=== PATIENT | female | born 1970 | race African-American/Black ===

== ENCOUNTER 2020-01-19 11:39 | Outpatient (CLI) | payer OTHER, SELFPAY ==
[2020-01-19 12:40] LABS: Basophils Percent Auto 0.8 % (0.2-1.2); Eosinophils Absolute Auto 0.1 K/mm3 (0-0.3); Eosinophils Percent Auto 1.3 % (0-4.4); Hematocrit 36.6 % (37.0-47.0); Hemoglobin 11.9 g/dL (12.0-15.0); Immature Granulocyte Absolute 0.01 K/mm3 (0.00-0.031); Immature Granulocyte Percent A 0.3 % (0-0.5); Lymphocytes Absolute Auto 1.66 K/mm3 (0.9-3.2); Lymphocytes Percent Auto 41.9 % (18.3-44.2); Mean Corpuscular HGB Conc 32.5 g/dl (32-36); Mean Corpuscular Hemoglobin 28.2 pg (26-34); Mean Corpuscular Volume 86.7 fl (80-100); Mean Platelet Volume 9.8 fl (7.4-10.4); Monocytes Absolute Auto 0.4 K/mm3 (0.1-0.6); Monocytes Percent Auto 9.6 % (2.6-8.5); Neutrophils Absolute Auto 1.8 K/mm3 (1.3-6.7); Neutrophils Percent Auto 46.1 % (45.5-73.1); Platelet Count Result 267 k/mm3 (150-375); Red Blood Count 4.22 M/mm3 (4.2-5.4)
[2020-01-19 12:50] LABS: Alanine Aminotransferase 14 U/L (4-35); Albumin Level 4.1 g/dL (3.5-5.1); Alkaline Phosphatase 73 U/L (38-126); Anion Gap 5 mmol/L (8-16); Aspartate Amino Transferase 24 U/L (14-36); Bilirubin,Total 0.6 mg/dL (0.2-1.3); Blood Urea Nitrogen 16 mg/dL (7-17); Calcium 9.3 mg/dL (8.4-10.2); Carbon Dioxide 31 mmol/L (22-30); Chloride 106 mmol/L (98-107); Cholesterol 224 mg/dL (0-200); Estimated Glomerular Filt Rate > 60; Glucose 90 mg/dL (65-105); HDL Direct 86 mg/dL; Potassium 4.3 mmol/L (3.4-5.0); Sodium 142 mmol/L (137-145); Triglycerides 82 mg/dL (<150)
[2020-01-19 12:51] LABS: Hemoglobin A1C 5.3 % (<5.7)
[2020-01-19 13:01] LABS: LDL Cholesterol Direct 85 mg/dL
[2020-01-19 13:24] LABS: Creatinine Urine 114.5 mg/dL
[2020-01-19 13:40] LABS: Vitamin D 25 Hydroxy 35.2 ng/mL
[2020-01-19 14:07] LABS: MALB Creatinine Ratio < 5.2 mg/g (0-30); Microalbumin Urine Random < 6.0 mg/L (0-16.7)
== END 2020-01-19 11:40 | disposition home or self-care (01) ==
LOC: ANHLAB 11:41
PROVIDERS: PCP Internal Medicine; Visit Provider Internal Medicine
DX: R73.01 Impaired fasting glucose (principal); E55.9 Vitamin D deficiency, unspecified; G70.00 Myasthenia gravis without (acute) exacerbation; Z79.899 Other long term (current) drug therapy
CPT/HCPCS: 36415; 80053; 80061; 82043; 82306; 83036; 84443; 85025

== ENCOUNTER 2020-04-04 08:33 | Outpatient (CLI) | payer OTHER, SELFPAY ==
--- NOTE | ~2020-04-04 | MM_ITS ---
EXAMINATION: MM screening [facility] BI w diane HISTORY: Screening mammogram TECHNIQUE: Craniocaudal and mediolateral oblique 3-D tomosynthesis images were obtained and synthetic 2-D images were generated. CAD analysis was submitted and interpreted. COMPARISON: 02/24/2019, 12/17/2017, 11/03/2016, 09/08/2014 bilateral digital screening mammogram examina tions BREAST PARENCHYMAL COMPOSITION: There are scattered areas of fibroglandular density. FINDINGS: There is stable fibroglandular asymmetry including asymmetric density in the posterior uppe r inner right breast, stable since 09/08/2014. There is no evidence of suspicious mass, calcification, or architectural distortion to suggest malignancy in either breast. There has been no suspicious int erval change. IMPRESSION: 1. No mammographic evidence of malignancy. 2. Recommend routine screening mammography in one year. BI-RADS Category 2: Benign finding(s). Reviewed, dictated and finalized at location A. [facility]
== END 2020-04-04 08:34 | disposition home or self-care (01) ==
LOC: ANHIMG 08:35
PROVIDERS: PCP Internal Medicine; Visit Provider Internal Medicine
DX: Z12.31 Encounter for screening mammogram for malignant neoplasm of breast (principal)
CPT/HCPCS: 77063; 77067

== ENCOUNTER 2021-01-09 09:54 | Outpatient (CLI) | payer OTHER, SELFPAY ==
[2021-01-09 10:26] LABS: Basophils Percent Auto 0.9 % (0.2-1.2); Eosinophils Absolute Auto 0.1 K/mm3 (0-0.3); Eosinophils Percent Auto 2.1 % (0-4.4); Hematocrit 38.5 % (37.0-47.0); Hemoglobin 12.6 g/dL (12.0-15.0); Immature Granulocyte Absolute 0.01 K/mm3 (0.00-0.031); Immature Granulocyte Percent A 0.3 % (0-0.5); Lymphocytes Percent Auto 47.2 % (18.3-44.2); Mean Corpuscular HGB Conc 32.7 g/dl (32-36); Mean Corpuscular Hemoglobin 28.8 pg (26-34); Mean Corpuscular Volume 88.1 fl (80-100); Mean Platelet Volume 9.7 fl (7.4-10.4); Monocytes Absolute Auto 0.3 K/mm3 (0.1-0.6); Neutrophils Absolute Auto 1.3 K/mm3 (1.3-6.7); Neutrophils Percent Auto 39.5 % (45.5-73.1); Platelet Count Result 236 k/mm3 (150-375); Red Blood Count 4.37 M/mm3 (4.2-5.4); Red Cell Distribution Width 13.5 % (11.5-14.5); White Blood Count 3.4 K/mm3 (4.5-10.0)
[2021-01-09 10:30] LABS: Alanine Aminotransferase 16 U/L (4-35); Albumin Level 4.5 g/dL (3.5-5.1); Alkaline Phosphatase 87 U/L (38-126); Anion Gap 9 mmol/L (8-16); Aspartate Amino Transferase 26 U/L (14-36); Bilirubin,Total 0.9 mg/dL (0.2-1.3); Blood Urea Nitrogen 12 mg/dL (7-17); Calcium 9.6 mg/dL (8.4-10.2); Carbon Dioxide 26 mmol/L (22-30); Chloride 104 mmol/L (98-107); Cholesterol 219 mg/dL (0-200); Estimated Glomerular Filt Rate > 60; Glucose 90 mg/dL (65-110); HDL Direct 89 mg/dL; Potassium 3.8 mmol/L (3.4-5.0); Sodium 139 mmol/L (137-145); Triglycerides 65 mg/dL (<150)
[2021-01-09 10:32] LABS: Add Urine Microscopic? NO; Appearance Urine Clear (Clear); Bilirubin Urine Negative (Negative); Blood Urine Negative (Negative); Color Urine Yellow (Yellow); Glucose Urine UA Negative (Negative); Ketones Urine Negative (Negative); Leukocyte Esterase Ur Negative LEU/UL (NEGATIVE); Nitrate Urine Negative (Negative); Protein Urine Negative (Negative); Specific Grav Ur 1.021 (1.001-1.035); Urobilinogen Urine Negative mg/dL (<2.0)
[2021-01-09 10:39] LABS: Hemoglobin A1C 5.5 % (<5.7)
[2021-01-09 10:41] LABS: LDL Cholesterol Direct 83 mg/dL
[2021-01-09 10:45] LABS: Vitamin D 25 Hydroxy 43.6 ng/mL
== END 2021-01-09 09:55 | disposition home or self-care (01) ==
PROVIDERS: PCP Internal Medicine; Visit Provider Internal Medicine
DX: E55.9 Vitamin D deficiency, unspecified (principal); R73.01 Impaired fasting glucose; G70.00 Myasthenia gravis without (acute) exacerbation; Z79.899 Other long term (current) drug therapy; E66.9 Obesity, unspecified
CPT/HCPCS: 36415; 80053; 80061; 81003; 82306; 83036; 84443; 85025

== ENCOUNTER 2021-04-17 00:13 | Day surgery (SDC) | payer OTHER, SELFPAY ==
[2021-04-07 13:49] VITALS: BMI 34.0
[2021-04-17 06:53] VITALS: BP 111/81; PULSE 59; RESP 18; TEMP 36.1; BMI 36.3
[2021-04-17] MEDS: LACTATED RINGERS 1,000 ML 150 ML IV CONT (07:06)
--- NOTE | 2021-04-17 07:23 | P.PNAN_ITS ---
Anes - Initial Pre Proc Eval Procedure: Operation Date: 04/17/21 08:00 Proposed Procedures p Screening Colonoscopy - Valdez Smith MD Date/Time: 04/17/21 07:23 Surgeon: Valdez Smith MD Pre Op Diagnosis: neoplasm screening Patient Data Age: 51 Gender: F Height: 1.6 m Weight: 92.9 kg Last Vital Signs Temp 36.1 C L 04/17/21 06:53 Pulse 59 L 04/17/21 06:53 Resp 18 04/17/21 06:53 BP 111/81 04/17/21 06:53 Allergies Allergy/AdvReac Type Severity Reaction Status Date / Time clarithromycin Allergy Unknown Aggravates Verified 04/17/21 06:52 Myasthenia gravis levofloxacin Allergy Unknown Unknown Verified 04/17/21 06:52 azithromycin AdvReac Unknown DOES NOT Verified 04/17/21 06:52 WORK FOR PT Home Medications Medication Instructions Recorded Confirmed Type prednisone 5 mg tablet See Rx Instructions .ROUTE 11/14/20 04/07/21 Rx .COMPLEX #15 tablet pyridostigmine bromide 60 mg tablet See Rx Instructions .ROUTE 11/14/20 04/07/21 Rx .COMPLEX #60 tablet multivitamin 1 tablet PO DAILY 01/10/21 04/07/21 History Patient hx anesthesia problems: none Family hx anesthesia problems: none Results Review: All pre-operative results and documents have been reviewed as part of the pre-operative evaluation. [facility] Past Medical History Medical History (Updated 01/10/21 @ 06:56 by Jama Austin MD) Screening mammogram, encounter for Surgical History Surgical History (Updated 04/17/21 @ 07:26 by Esteban Davis MD) H/O thymectomy Family History Family History Father Family history of malignant neoplasm of bone Social History Social History Smoking status: Never smoker Alcohol intake: current Drinks per week: 3 Substance use: never Substance use type: does not use Living arrangements: alone Spiritual care concerns: No Anes - Eval Final PreProcedure Day of Procedure 04/17/21 07:23 Patient weight: obese Heart: regular rate and rhythm Lungs: clear to auscultation Airway: Mallampati scale class II Neurological: alert and oriented Last oral intake: >/= 8 hours ASA classification: II Emergent: no Anesthetic plan: proceed Anesthesia type and monitoring: general GIVS and standard monitoring Results Review: All pre-operative results and documents have been reviewed as part of the pre-operative evaluation. Informed Consent: The patient's anesthetic plan and its attendant risks and benefits were discussed with the patient/family/POA. Questions were solicited and answers provided to the satisfaction of the patient/family/POA.
--- NOTE | 2021-04-17 07:54 | PM.HPGS ---
History of Present Illness History of Present Illness Consent: Risks, benefits, and alternatives have been discussed and questions answered. Patient agrees to proceed with procedure. Chief complaint: neoplasm screening Narrative: Xin Mills is a 51 year old female here for first screening colonoscopy Review of Systems Constitutional: Constitutional: Denies headache(s) and Denies weakness Eyes: Eyes: Denies blurry vision ENT: Reports Normal hearing present, Denies headache(s) and Denies neck pain Cardiovascular: Cardiovascular: Denies chest pain and Denies dyspnea Respiratory: Respiratory: Denies dyspnea Gastrointestinal: Gastrointestinal: Reports no additional gastrointestinal complaints Genitourinary: Genitourinary: Denies dysuria Musculoskeletal: Musculoskeletal: Denies neck pain Integumentary/Breasts: Skin/Breast: Denies dry skin Neurologic: Reports Normal hearing present, Denies headache(s) and Denies weakness Psychiatric: Psychiatric: Denies anxiety Endocrine: Endocrine: Denies change in body appearance Hematologic/Lymphatic: Hematologic/Lymphatic: Denies easy bleeding Allergic/Immunologic: Allergic/Immunologic: Denies urticaria PMFSH Past Medical History Medical History (Updated 01/10/21 @ 06:56 by Jama Austin MD) Screening mammogram, encounter for Surgical History Surgical History (Updated 04/17/21 @ 07:26 by Esteban Davis MD) H/O thymectomy Family History Family History Father Family history of malignant neoplasm of bone Social History Social History Smoking status: Never smoker Alcohol intake: current Drinks per week: 3 Substance use: never Substance use type: does not use Living arrangements: alone Spiritual care concerns: No Meds Home Medications and Allergies Home Medications Medication Instructions Recorded Confirmed Type prednisone 5 mg tablet See Rx Instructions .ROUTE 11/14/20 04/07/21 Rx .COMPLEX #15 tablet pyridostigmine bromide 60 mg tablet See Rx Instructions .ROUTE 11/14/20 04/07/21 Rx .COMPLEX #60 tablet multivitamin 1 tablet PO DAILY 01/10/21 04/07/21 History Allergies Allergy/AdvReac Type Severity Reaction Status Date / Time clarithromycin Allergy Unknown Aggravates Verified 04/17/21 06:52 Myasthenia gravis levofloxacin Allergy Unknown Unknown Verified 04/17/21 06:52 azithromycin AdvReac Unknown DOES NOT Verified 04/17/21 06:52 WORK FOR PT Vital Signs Vital Signs - 24 hr 04/17/21 06:53 Temperature 97 F L Pulse Rate 59 L Respiratory Rate 18 Blood Pressure 111/81 Exam Const: General: comfortable and no acute distress HENMT: General nose exam: Normal nares present Eyes: General: appearance normal, both eyes and all related structures Neck: Neck: no JVD Resp: Auscultation: clear to auscultation bilaterally Cardio: Rate: regular rate Rhythm: regular rhythm GI: Inspection: non-distended GI Palp: Yes Soft to palpation Skin: General skin exam: normal color Neuro: General: gait normal Speech: normal speech Extrem: General: normal to inspection Psych: Mental Status: mental status grossly normal Assessment and Plan Assessment and plan (1) Encounter for screening colonoscopy: Code(s): Z12.11 - Encounter for screening for malignant neoplasm of colon Status: Acute Assessment and Plan: colonoscopy
[2021-04-17 08:12] VITALS: BP 114/76; PULSE 65; RESP 16
[2021-04-17 08:22] VITALS: BP 133/88; PULSE 57; RESP 17
[2021-04-17 08:32] VITALS: BP 137/90; PULSE 54; RESP 18
== END 2021-04-17 08:43 | disposition home or self-care (01) ==
PROVIDERS: PCP Internal Medicine; Visit Provider Internal Medicine Gastroenterology
PROC: 0DJD8ZZ Inspection of Lower Intestinal Tract, Via Natural or Artificial Opening Endoscopic (ICD-10-PCS; CPT 45378; principal; 2021-04-17 08:00)
DX: Z12.11 Encounter for screening for malignant neoplasm of colon (principal); K63.5 Polyp of colon; K64.8 Other hemorrhoids; E66.9 Obesity, unspecified; Z68.36 Body mass index [BMI] 36.0-36.9, adult
CPT/HCPCS: 45380; 88305; J2704; J7120

== ENCOUNTER 2021-05-29 14:28 | Outpatient (CLI) | payer OTHER, SELFPAY ==
--- NOTE | ~2021-05-29 | MM_ITS ---
EXAMINATION: MM screening [facility] BI w diane HISTORY: Screening mammogram TECHNIQUE: Craniocaudal and mediolateral oblique 3-D tomosynthesis images were obtained and synthetic 2-D images were generated. CAD analysis was submitted and interpreted. COMPARISON: 04/04/2020, 02/24/2019, 12/17/2017 BREAST PARENCHYMAL COMPOSITION: There are scattered areas of fibroglandular density. FINDINGS: There are stable changes of excisional biopsy in the left breast and a stable mass in the f ar posterior third of the inner right breast. There is no evidence of suspicious mass, calcification, or architectural distortion to suggest malignancy in either breast. There has been no suspicious int erval change. IMPRESSION: 1. No mammographic evidence of malignancy. 2. Recommend routine screening mammography in one year. BI-RADS Category 2: Benign finding(s). Reviewed, dictated and finalized at location A.
== END 2021-05-29 14:29 | disposition home or self-care (01) ==
LOC: ANHIMG 14:30
PROVIDERS: PCP Internal Medicine; Visit Provider Internal Medicine
DX: Z12.31 Encounter for screening mammogram for malignant neoplasm of breast (principal)
CPT/HCPCS: 77063; 77067

== ENCOUNTER 2021-12-26 10:37 | Outpatient (CLI) | payer OTHER, SELFPAY ==
[2021-12-26 10:59] LABS: Basophils Percent Auto 0.6 % (0.2-1.2); Eosinophils Absolute Auto 0.1 K/mm3 (0-0.3); Eosinophils Percent Auto 1.5 % (0-4.4); Hematocrit 38.1 % (37.0-47.0); Hemoglobin 12.4 g/dL (12.0-15.0); Immature Granulocyte Absolute 0.01 K/mm3 (0.00-0.031); Immature Granulocyte Percent A 0.2 % (0-0.5); Lymphocytes Absolute Auto 2.02 K/mm3 (0.9-3.2); Lymphocytes Percent Auto 43.2 % (18.3-44.2); Mean Corpuscular HGB Conc 32.5 g/dl (32-36); Mean Platelet Volume 9.1 fl (7.4-10.4); Monocytes Absolute Auto 0.5 K/mm3 (0.1-0.6); Neutrophils Absolute Auto 2.1 K/mm3 (1.3-6.7); Neutrophils Percent Auto 44.5 % (45.5-73.1); Platelet Count Result 249 k/mm3 (150-375); Red Blood Count 4.28 M/mm3 (4.2-5.4); Red Cell Distribution Width 13.7 % (11.5-14.5); White Blood Count 4.7 K/mm3 (4.5-10.0)
[2021-12-26 11:07] LABS: Alanine Aminotransferase 19 U/L (6-35); Albumin Level 4.4 g/dL (3.5-5.1); Alkaline Phosphatase 79 U/L (38-126); Anion Gap 10 mmol/L (8-16); Aspartate Amino Transferase 23 U/L (14-36); Bilirubin,Total 0.6 mg/dL (0.2-1.3); Blood Urea Nitrogen 12 mg/dL (7-17); Carbon Dioxide 31 mmol/L (22-30); Chloride 101 mmol/L (98-107); Estimated Glomerular Filt Rate > 60; Glucose 83 mg/dL (65-110); Potassium 3.7 mmol/L (3.4-5.0); Sodium 142 mmol/L (137-145)
== END 2021-12-26 10:38 | disposition home or self-care (01) ==
LOC: ANHSURGERY 10:43
PROVIDERS: PCP Nurse Practitioner; Visit Provider Obstetrics & Gynecology
DX: Z01.812 Encounter for preprocedural laboratory examination (principal); D21.9 Benign neoplasm of connective and other soft tissue, unspecified
CPT/HCPCS: 36415; 80053; 85025; 86850; 86900; 86901

== ENCOUNTER 2022-01-02 01:26 | Day surgery (SDC) | payer OTHER, SELFPAY ==
[2021-12-21 15:00] VITALS: BMI 34.7
--- NOTE | 2021-12-21 15:08 | PC.NURSE ---
Report to the Outpatient Waiting Room, entrance under the green pavilion located off [facility], at time _0600_ on date _[id number]_. OR Time: _0730_. Time changes happen often and if your time is changed the preop area will call you the afternoon before. - You and your visitor will be asked to self-screen and do not enter if you have any COVID symptoms. - We encourage only one visitor and NO visitors under age 16 are allowed at this time. Your visitor will receive communication by the phone number that is given day of service. - The patient visitor is requested to social distance or may leave the building when not with patient due to restrictions. - A mask is required within the hospital. Patients may have clear liquids (water, carbonated beverages, clear teas, apple juice) until 3 hours prior to surgery with a maximum of 20 ounces. - No food from midnight until time of surgery Take the following medications with a SIP of water the morning of surgery: __Prednisone Medications to discontinue per physician ____None Date to take last dose Please no make-up, nail chilean, hairspray, perfume, deodorant, or body powder the day of surgery. No jewelry (including any body piercings) or valuables the day of surgery, leave them at home. Please take a shower or bath the night before, or the morning of, surgery with an antibacterial soap. Wear comfortable, loose fitting clothing. - Jewelry must be removed prior to entering the operating room. Rings and piercings that are not removed may be cut off. - The hospital will not accept responsibility for valuables. - Please leave all valuables, including medications, at home the day of surgery. If you are going home after surgery, a licensed bobtail driver must drive you home. - NO public transportation without another adult. - We recommend that an adult stay with you for 24 hours following discharge. - We also recommend that you do not drive, make important decision, drink alcoholic beverages, or take any drugs that were not prescribed by your health care provider for at least 24 hours after your discharge time. Follow any additional instructions given to you from your surgeon. If you or anyone in your household have experienced Covid symptoms in the past week, please notify your surgeon or the nurse liaison at the phone number below for possible testing. Telephone instructions given to _Patient___and asked if any additional questions and then verbalized understanding. Patient advised to call surgeon office or pre surgery nurse liaison [phone] if any additional questions.
[2022-01-02] VITALS (12 sets, daily range): BP systolic 107–152; BP diastolic 70–103; PULSE 49–82; RESP 12–18; TEMP 36.2–36.9; O2SAT 98–100
[2022-01-02] MEDS: LACTATED RINGERS 1,000 ML 30 ML IV CONT ×2 (06:57→09:26)
[2022-01-02] MEDS: ACETAMINOPHEN 500 MG TABLET 1000 MG PO (06:57)
[2022-01-02] MEDS: KETOROLAC 15 MG/ML VIAL (*BKC) IV PUSH (06:58)
[2022-01-02] MEDS: ONDANSETRON INJ 4 MG/2 ML VIAL IV PUSH (07:04)
--- NOTE | 2022-01-02 07:12 | P.PNAN_ITS ---
Anes - Initial Pre Proc Eval Procedure: Operation Date: 01/02/22 07:30 Proposed Procedures p Total Laparoscopic Hysterectomy with Bilateral Salpingo Oophorectomy - Mahi Souza MD Date/Time: 01/02/22 07:12 Surgeon: Mahi Souza MD Pre Op Diagnosis: pelvic pain Patient Data Age: 51 Gender: F Height: 1.63 m Weight: 91.8 kg Allergies Allergy/AdvReac Type Severity Reaction Status Date / Time clarithromycin Allergy Unknown Aggravates Verified 01/02/22 07:09 Myasthenia gravis levofloxacin Allergy Unknown Unknown Verified 01/02/22 07:09 azithromycin AdvReac Unknown DOES NOT Verified 01/02/22 07:09 WORK FOR PT Home Medications Medication Instructions Recorded Confirmed Type prednisone 5 mg tablet See Rx Instructions .Route 09/27/21 01/02/22 Rx .COMPLEX #15 tabs pyridostigmine bromide 60 mg tablet See Rx Instructions .Route 10/03/21 01/02/22 Rx .COMPLEX #60 tabs Patient hx anesthesia problems: post op nausea/vomiting Family hx anesthesia problems: none Results Review: All pre-operative results and documents have been reviewed as part of the pre- operative evaluation. [facility] Past Medical History Medical History (Updated 01/10/21 @ 06:56 by Jama AustinMD) Screening mammogram, encounter for Surgical History Surgical History (Updated 04/17/21 @ 07:26 by Esteban Davis MD) H/O thymectomy Family History Family History Father Family history of malignant neoplasm of bone Social History Social History Smoking status: Never smoker Alcohol intake: current Drinks per week: 3 Substance use: never Substance use type: does not use Living arrangements: alone Spiritual care concerns: No Anes - Eval Final PreProcedure Day of Procedure 01/02/22 07:12 Patient weight: obese Heart: regular rate and rhythm Lungs: clear to auscultation Airway: Mallampati scale class III Neurological: alert and oriented Last oral intake: >/= 8 hours ASA classification: III Emergent: no Anesthetic plan: proceed Anesthesia type and monitoring: general ETT and standard monitoring Results Review: All pre-operative results and documents have been reviewed as part of the pre- operative evaluation. Informed Consent: The patient's anesthetic plan and its attendant risks and benefits were discussed with the patient/family/POA. Questions were solicited and answers provided to the satisfaction of the patient/family/POA.
--- NOTE | 2022-01-02 07:14 | WPDHPUPDATE1 ---
History and Physical Update Update Date/Time: 01/02/22 07:14 History and Physical has been reviewed, including an updated exam of the patient. There are NO changes in the patient's condition. Risks, benefits, and alternatives have been discussed and questions answered. Patient agrees to proceed with procedure.
[2022-01-02] MEDS: ceFAZolin 2 GM/D5W 50 ML 2 GM/50 ML BAG IVPB (07:26)
[2022-01-02] MEDS: ceFAZolin SODIUM 1 GM VIAL (07:26)
--- NOTE | 2022-01-02 09:37 | W.PM.PROC2 ---
Procedure Note - Detailed Date of Procedure 01/02/22 Pre-op Diagnosis pelvic pain Post-op Diagnosis Same Procedure Performed Total laparoscopic hysterectomy and bilateral salpingo-oophorectomy. Surgeon Mahi Souza MD Anesthesia General Description of Procedure This patient was taken to the operating room. She was prepped and draped in the dorsal lithotomy position after induction of general anesthesia. The uterine manipulator and Nicole cup were placed. This was done with a speculum and tenaculum. The speculum was placed. The cervix was grasped with a tenaculum. The stay sutures were placed at 3 and 9:00 a.m.. The stay sutures of 0 Vicryl were brought through the appropriately sized Nicole cup. The tip of the ZULAY manipulator was placed in the intrauterine cavity. The cup was slid into place around the cervix and into the fornices. It was locked into place. The sutures were then wrapped around the handle and tied under tension. A 5 mm skin incision was made in the left upper quadrant the abdomen. A 5 mm trocar was inserted into the intrauterine cavity under direct visualization of the scope. Pneumoperitoneum was achieved. A left lower quadrant 11 mm incision was made with scalpel. An 11 mm trocar was inserted into the anterior abdominal cavity under direct visualization the scope. A 5 mm infraumbilical incision was made with a scalpel and a 5 mm trocar was inserted the intra-abdominal cavity under direct visualization of the scope. Bilateral ureteral lysis was performed. This was done from the pelvic brim down to the uterine artery. This was done with careful dissection using sharp and blunt dissection. The infundibulopelvic ligaments were isolated after identification of the ureters bilaterally. These infundibulopelvic ligaments were cauterized and transected with LigaSure cautery. The para ovarian tissue was cauterized and transected with LigaSure cautery bilaterally. Moving around the ovary into the broad ligament the tissue was cauterized transected with LigaSure cautery. The round ligaments were cauterized transected with LigaSure cautery this was all done in a bilateral fashion. In a stepwise fashion along the lateral aspects of the uterus the round ligament and broad ligaments were cauterized transected down to the level of the uterine arteries. A bladder flap was created in the bladder was moved distally to the end of the cervix and over the Nicole cup. The bilateral uterine arteries were cauterized and transected. Colpotomy was then performed. In a circumferential fashion the vagina was transected using unipolar cautery. The incision was made down on the Nicole cup. The uterus, cervix, fallopian tubes and ovaries were taken out through the vagina. A pneumo occluder was placed in the vagina. The vaginal cuff was closed with a 0 V lock suture in a running fashion. The pelvis was irrigated with copious amounts antibiotic irrigation. The ureters were again examined and found to be intact and flowing freely under the uterine arteries into the bladder. The bladder was intact. It was examined directly. The vagina was irrigated with Betadine solution after removal of the Pneumo occluder. The patient was taken to recovery room. She was stable condition. Sponge lap and needle counts were correct x2. Estimated Blood Loss -25.0 Urine Output -575.0 Drains Yes Packing No Pathology Yes Complications No immediate complications Condition Stable Disposition Floor
[2022-01-02] MEDS: fentaNYL CITRATE INJ (*CRX) 100 MCG/2 ML VIAL 25 MCG IV PUSH ×4 (09:42→10:24)
--- NOTE | 2022-01-02 10:33 | PC.NURSE ---
Patient transferred to post room # via ( [id number] ). Support person present. Oriented to unit, room, information board, rooming in, admission packet and security measures. Patient verbalizes understanding.
[2022-01-02] MEDS: DEXTROSE 5%/0.45% SOD CHL 1,000 ML 125 ML IV CONT (10:41)
[2022-01-02] MEDS: KETOROLAC 30 MG/ML VIAL (*BKC) IV PUSH (10:49)
[2022-01-02] MEDS: HYDROcodone/acetaminophen (*CRX) 5-325 MG TABLET 1 TAB PO ×2 (12:13→15:51)
--- NOTE | 2022-01-02 17:00 | PC.NURSE ---
Patient transferred to post room # via ([id number] ). Support person present. Oriented to unit, room, information board, rooming in, admission packet and security measures. Patient verbalizes understanding.
[2022-01-02] MEDS: HYDROcodone/acetaminophen (*CRX) 10-325 MG TABLET 1 TAB PO ×2 (19:13→23:55)
[2022-01-02] MEDS: pyRIDostigmine bromide 60 MG TABLET BY MOUTH (23:55)
[2022-01-03] MEDS: KETOROLAC 30 MG/ML VIAL (*BKC) IV PUSH (00:06)
[2022-01-03 00:14] VITALS: BP 112/68; PULSE 82; RESP 18; TEMP 37.2; O2SAT 98
[2022-01-03] MEDS: HYDROcodone/acetaminophen (*CRX) 10-325 MG TABLET 1 TAB PO ×2 (04:27→08:12)
[2022-01-03 04:30] VITALS: BP 90/50; PULSE 70; RESP 16; TEMP 37.2; O2SAT 97
--- NOTE | 2022-01-03 07:42 | WPDANESPN ---
Anes - Prog Note Post-Op Date/Time: 01/03/22 07:42 Cardiovascular status: normal Respiratory status: normal Airway patency: baseline Mental status: baseline Post-Op hydration status: normal Vital Signs: Last Vital Signs Temp 37.2 C 01/03/22 04:30 Pulse 70 01/03/22 04:30 Resp 16 01/03/22 04:30 BP 90/50 L 01/03/22 04:30 Pulse Ox 97 01/03/22 04:30 O2 Del Method Room Air 01/03/22 04:30 O2 Flow Rate 8 01/02/22 09:40 Pain Score (VAS): 05/25 I/O: Intake & Output 01/02/22 01/02/22 01/03/22 15:59 23:59 07:59 Intake Total 450 1840 600 Output Total 155 1850 1200 Balance 295 -10 -600 Post-procedural complaints: none Patient Feedback: Patient satisfied with anesthetic care.
[2022-01-03 08:05] VITALS: BP 115/67; PULSE 58; RESP 16; TEMP 36.5; O2SAT 99
[2022-01-03] MEDS: pyRIDostigmine bromide 60 MG TABLET BY MOUTH (08:13)
[2022-01-03] MEDS: predniSONE 5 MG TABLET BY MOUTH (08:13)
--- NOTE | 2022-01-03 09:57 | PM.GYNPNOP ---
[facility] - A/P Postoperative Procedures: Procedures Operation Date: 01/02/22 07:30 Actual Procedure Side Surgeon p Total Laparoscopic Hysterectomy with Bilateral Salpingo Oophorectomy Bilateral Mahi Souza MD Postoperative day: 1 Postoperative status: doing well Postoperative plan: see orders Time Spent With Patient Time: Total time spent is greater than 50% in coordination of care (as documented) at patient's floor/unit and/or counseling patient: Time with patient: less than 15 minutes [facility]- PN:Subj Post-Op Subjective Date/time seen: 01/03/22 09:57 Subjective: patient reports feeling better, patient has no complaints and pain is well controlled Exam Const: General: healthy appearing, comfortable and no acute distress Resp: Auscultation: clear to auscultation bilaterally, no rales, no rhonchi and no wheezes Cardio: Rate: regular rate Heart sounds: no click, no murmurs and no rubs GI: Inspection: non-distended Auscultation: normal bowel sounds Extrem: General: normal to inspection, no pedal edema and no calf tenderness [facility] - PN: Obj Data Vital Signs Vital Signs: Vital Signs - 24 hr 01/02/22 10:10 01/02/22 10:25 01/02/22 10:40 Temperature 97.1 F L Pulse Rate 52 L 49 L 50 L Respiratory Rate 12 12 16 Blood Pressure 152/89 H 152/81 H 148/84 H Pulse Oximetry 100 99 100 Oxygen Delivery Room Air Room Air 01/02/22 10:40 01/02/22 11:44 01/02/22 16:00 Temperature 98 F 98.1 F Pulse Rate 50 L 60 Respiratory Rate 16 18 Blood Pressure 144/79 H 128/78 Pulse Oximetry 100 99 Oxygen Delivery Room Air 01/02/22 16:00 01/02/22 19:05 01/02/22 19:05 Temperature 98.4 F Pulse Rate 66 66 Respiratory Rate 16 16 Blood Pressure 136/73 Pulse Oximetry 98 98 Oxygen Delivery Room Air Room Air 01/03/22 00:14 01/02/22 23:55 01/03/22 04:30 Temperature 98.9 F 98.9 F Pulse Rate 82 82 70 Respiratory Rate 18 18 16 Blood Pressure 112/68 90/50 L Pulse Oximetry 98 98 97 Oxygen Delivery Room Air 01/03/22 04:30 01/03/22 08:05 01/03/22 08:45 Temperature 97.7 F Pulse Rate 70 58 L Respiratory Rate 16 16 Blood Pressure 115/67 Pulse Oximetry 97 99 Oxygen Delivery Room Air Room Air Intake/Output Intake/Output: Intake & Output 12/31/21 01/01/22 01/02/22 01/03/22 23:59 23:59 23:59 23:59 Intake Total 2290 600 Output Total 2004 1200 Balance 285 -600 Meds/Results Medications: Active Medications Generic Name Dose Route Start Last Admin Trade Name Freq PRN Reason Stop Dose Admin Hydrocodone Bitart/Acetaminophen 1 tab 01/02/22 10:28 01/02/22 15:51 Hydrocodone/Acetaminophen (*Crx) 5-325 Mg Tablet PO 1 tab Q3H PRN Administration Pain Rated 5 or Less Hydrocodone Bitart/Acetaminophen 1 tab 01/02/22 10:28 01/03/22 08:12 Hydrocodone/Acetaminophen (*Crx) 10-325 Mg Tablet PO 1 tab Q3H PRN Administration Pain Rated 6 or Greater Ibuprofen 600 mg 01/02/22 10:28 Ibuprofen 600 Mg Tablet PO Q6H PRN Cramping Ketorolac Tromethamine 30 mg 01/02/22 10:28 01/03/22 00:06 Ketorolac 30 Mg/Ml Vial (*Bkc) IV PUSH 01/07/22 10:27 30 mg Q6H PRN Administration Pain Rated 4-6 Naloxone HCl 0.1 mg 01/02/22 10:28 Naloxone Hcl 0.4 Mg/Ml Vial IV PUSH Q2M PRN Respiratory rate less than 10 Ondansetron HCl 4 mg 01/02/22 10:28 Ondansetron Inj 4 Mg/2 Ml Vial IV PUSH Q6H PRN Nausea And Vomiting Prednisone 5 mg 01/03/22 09:00 01/03/22 08:13 Prednisone 5 Mg Tablet BY MOUTH 5 mg Q48HR KYLE Administration Pyridostigmine [place] 60 mg 01/02/22 21:00 01/03/22 08:13 Pyridostigmine [place] 60 Mg Tablet BY MOUTH 60 mg Q12HR KYLE Administration
== END 2022-01-03 11:00 | disposition home or self-care (01) ==
LOC: ANHSURGERY 06:25 → ANHOB2 10:32
PROVIDERS: PCP Nurse Practitioner; Visit Provider Obstetrics & Gynecology
PROC: 0UT9FZZ Resection of Uterus, Via Natural or Artificial Opening With Percutaneous Endoscopic Assistance (ICD-10-PCS; CPT 58571; principal; 2022-01-02 07:30)
DX: R10.2 Pelvic and perineal pain (principal); D25.9 Leiomyoma of uterus, unspecified; N94.10 Unspecified dyspareunia; E66.9 Obesity, unspecified; Z68.35 Body mass index [BMI] 35.0-35.9, adult
CPT/HCPCS: 58571; 88307; 99199; A9270; J0690; J1100; J1170; J1885; J2250; J2405; J2704; J2710; J3010; J7030; J7120; J7512

== ENCOUNTER 2022-01-24 16:00 | Emergency (ER) | payer OTHER, SELFPAY ==
[2022-01-24 16:07] VITALS: BP 151/99; PULSE 60; RESP 16; TEMP 36.8; O2SAT 99
--- NOTE | 2022-01-24 16:08 | ED.URI ---
HPI - URI/Sore Throat General Chief Complaint: Upper Respiratory Infection Stated Complaint: SINUS PRESSURE/DRAINAGE Time Seen by Provider: 01/24/22 16:08 Source: patient Mode of arrival: ambulatory Limitations: no limitations History of Present Illness HPI Narrative: 51-year-old female presents with complaint of sinus congestion, pressure for 3 days. Reports that she has had a cold for over a week that has now turned into a sinus infection. States that she gets ?sinus infections ?often. Denies fever chills. Is taking [place] cold and Sinus. No chest pain or shortness of breath. All systems reviewed and negative except as noted above. Related Data Allergies Allergy/AdvReac Type Severity Reaction Status Date / Time clarithromycin Allergy Unknown Aggravates Verified 01/24/22 16:09 Myasthenia gravis levofloxacin Allergy Unknown Unknown Verified 01/24/22 16:09 azithromycin AdvReac Unknown DOES NOT Verified 01/24/22 16:09 WORK FOR PT Review of Systems Review of Systems: CONSTITUTIONAL: Denies fever, chills, or sweats. EYES: Denies visual changes, redness, or discharge. ENT: Reports rhinorrhea, congestion, sinus pressure. Denies sore throat, or otalgia. CARDIOVASCULAR: Denies chest pain, palpitations, or edema. RESPIRATORY: Denies cough or dyspnea. GASTROINTESTINAL: Denies abdominal pain, nausea, vomiting, or diarrhea. GENITOURINARY: Denies dysuria or hematuria. SKIN: Denies rash or itching. MUSCULOSKELETAL: Denies back pain, joint pain, or myalgia. NEUROLOGIC: Denies headache, numbness, or weakness. PSYCHIATRIC: Denies anxiety or depression. All other systems reviewed are negative, except as documented in HPI. [facility] Past Medical History Medical History (Updated 01/24/22 @ 16:16 by Corina Terrell NP) Screening mammogram, encounter for Surgical History Surgical History (Updated 04/17/21 @ 07:26 by Esteban Davis MD) H/O thymectomy Family History Family History Father Family history of malignant neoplasm of bone Social History Social History Smoking status: Never smoker Alcohol intake: current Drinks per week: 3 Substance use: never Substance use type: does not use Spiritual care concerns: No Comments At time of signature, agree with nursing past medical, surgical, social and family history. There is no relevant family history pertinent to the presenting complaint. Exam Narrative: GENERAL: This is a well-nourished, well-developed patient, in no apparent distress. HEAD: normocephalic, atraumatic. EYES: PERRL. Sclera clear/white. Vision is grossly intact. EARS: External ears normal, auditory canals clear and without drainage, clear fluid bilateral TMs without erythema or perforation. NOSE: External nose normal with yellowish green nasal drainage, moderate nasal congestion, maxillary and frontal sinus tenderness bilaterally. THROAT: Mucous membranes moist, posterior pharynx clear. NECK: Neck supple, non-tender without lymphadenopathy, masses or thyromegaly. CARDIOVASCULAR: Regular rate and rhythm without murmurs, gallops, or rubs. RESPIRATORY: Clear to auscultation. Breath sounds equal bilaterally. No wheezes, rales, or rhonchi. SKIN: warm, Dry, intact with no suspicious lesions or rash, good texture and turgor. NEURO: awake, alert, and oriented to person, place and time. There were no obvious focal neurologic abnormalities. EXTREMITIES: No joint tenderness, effusion, or edema noted. Course Course Level of Care: Express Care Visit Vital Signs Vital signs: Vital Signs Temperature 36.8 C 01/24/22 16:07 Pulse Rate 60 01/24/22 16:07 Respiratory Rate 16 01/24/22 16:07 Blood Pressure 151/99 H 01/24/22 16:07 Pulse Oximetry 99 01/24/22 16:07 Temperature 36.8 C 01/24/22 16:07 Pulse Rate 60 01/24/22 16:07 Respiratory Rate 16
== END 2022-01-24 16:18 | disposition home or self-care (01) ==
PROVIDERS: Emergency Provider Nurse Practitioner Family; PCP Nurse Practitioner
DX: J01.90 Acute sinusitis, unspecified (principal)
CPT/HCPCS: 99213; G0463

== ENCOUNTER 2022-08-27 09:41 | Outpatient (CLI) | payer OTHER, SELFPAY ==
--- NOTE | ~2022-08-27 | MM_ITS ---
EXAMINATION: MM screening krista BI w diane HISTORY: Screening mammogram TECHNIQUE: Craniocaudal and mediolateral oblique 3-D tomosynthesis images were obtained and synthetic 2-D images were generated. CAD analysis was submitted and interpreted. COMPARISON: Serial mammogram examinations dating back to 09/04/2014 and 09/27/2014 bilateral complete b reast ultrasound examination BREAST PARENCHYMAL COMPOSITION: There are scattered areas of fibroglandular density. FINDINGS: Chronic stable circumscribed approximately 11 mm opacity in the very posterior upper inner right breast, not significantly changed since 09/04/2014. Biopsy marker in the lower inner left breast; history of prior benign left breast biopsy. There is no evidence of suspicious mass, calcification, or architectural distortion to suggest malign lesia in either breast. There has been no suspicious interval change. IMPRESSION: 1. No mammographic evidence of malignancy. 2. Recommend routine screening mammography in one year. BI-RADS Category 2: Benign finding(s). Reviewed, dictated and finalized at location A.
== END 2022-08-27 09:42 | disposition home or self-care (01) ==
LOC: ANHIMG 09:43
PROVIDERS: PCP Nurse Practitioner; Visit Provider Family Medicine
DX: Z12.31 Encounter for screening mammogram for malignant neoplasm of breast (principal)
CPT/HCPCS: 77063; 77067

== ENCOUNTER 2022-09-26 17:56 | Emergency (ER) | payer OTHER, SELFPAY ==
--- NOTE | 2022-09-26 18:02 | ED.NAVMDI ---
HPI - Nausea/Vomiting/Diarrhea General Chief complaint: Nausea/Vomiting/Diarrhea Stated complaint: Stomache is warm, nauseated, burning in chest Source: patient and RN notes reviewed Limitations: no limitations History of Present Illness HPI Narrative: Patient is a 52-year-old female who presents to the [facility] with complaints of nausea for the past week. Patient states that she started developing the nausea and burning in her lower throat after the 18 of September weekend. Patient states that she was in [place] the weekend of the and ate spicy food. States that the discomfort became more frequent. She notices it most upon waking and after eating. she denies chest pain or shortness of breath. Denies abdominal pain, diarrhea, vomiting. Denies recent fevers. States that she has taken Pepto and Pepcid with minimal relief. States that she has also taken Tums which relieves her pain, but then eventually the pain comes back. Related Data Allergies Allergy/AdvReac Type Severity Reaction Status Date / Time clarithromycin Allergy Unknown Aggravates Verified 09/26/22 18:18 Myasthenia gravis levofloxacin Allergy Unknown Unknown Verified 09/26/22 18:18 azithromycin AdvReac Unknown DOES NOT Verified 09/26/22 18:18 WORK FOR PT Review of Systems Review of Systems: CONSTITUTIONAL: Denies fever, chills, or sweats. EYES: Denies visual changes, redness, or discharge. ENT: Denies otalgia and sore throat CARDIOVASCULAR: Denies chest pain, palpitations, or edema. RESPIRATORY: Denies cough or dyspnea. GASTROINTESTINAL: Denies abdominal pain, vomiting, or diarrhea. Reports nausea. GENITOURINARY: Denies dysuria or hematuria. SKIN: Denies rash or itching. MUSCULOSKELETAL: Denies back pain, joint pain, or myalgia. NEUROLOGIC: Denies headache, numbness, or weakness. Pertinent positives per HPI. [facility] Past Medical History Medical History Colon polyp Hypovitaminosis D Myasthenia gravis Screening mammogram, encounter for Surgical History Surgical History H/O hysterectomy with oophorectomy H/O thymectomy Family History Family History Father Family history of malignant neoplasm of bone Social History Social History Smoking status: Never smoker Alcohol intake: current Drinks per week: 3 Substance use: never Substance use type: does not use Lack of Transportation: No Lack of Food: Often True Current Housing: I Have Housing Concerned About Future Housing: No Difficulty Paying Gas/Electric Bills: YES Difficulty Paying for Meds: YES Currently Unemployed: No Education: Trade/Vocational Certificate Difficulty w/ Childcare or Family Care: YES Living arrangements: alone Spiritual care concerns: No Comments At the time of my signature, I reviewed and agree with the nursing past medical, surgical, social, and family history. There is no relevant family history pertinent to the patient complaint. Exam Narrative: GENERAL: This is a well-nourished, well-developed patient, in no apparent distress. HEAD: normocephalic, atraumatic. EYES: Sclera clear/white. Vision is grossly intact. EARS: External ears normal. Hearing grossly intact. NOSE: External nose normal with no obvious nasal discharge, nares without redness, no rhinorrhea. THROAT: Mucous membranes moist, posterior pharynx clear. NECK: Neck supple, non-tender without lymphadenopathy, masses or thyromegaly. CARDIOVASCULAR: Regular rate and rhythm without murmurs, gallops, or rubs. RESPIRATORY: Clear to auscultation. Breath sounds equal bilaterally. No wheezes, rales, or rhonchi. GASTROINTESTINAL: Abdomen soft, non-tender, nondistended. Bowel sounds are active. No hepato-splenomegaly, or palpable masses. No guarding.
[2022-09-26 18:09] VITALS: BP 128/85; PULSE 70; RESP 16; TEMP 36.4; O2SAT 100
== END 2022-09-26 18:30 | disposition home or self-care (01) ==
PROVIDERS: Emergency Provider Nurse Practitioner; PCP Family Medicine
DX: K21.9 Gastro-esophageal reflux disease without esophagitis (principal)
CPT/HCPCS: 99213; G0463

== ENCOUNTER 2023-02-11 10:28 | Outpatient (CLI) | payer OTHER, SELFPAY ==
[2023-02-11 10:47] LABS: Basophils Percent Auto 0.7 % (0.2-1.2); Eosinophils Absolute Auto 0.1 K/mm3 (0-0.3); Eosinophils Percent Auto 2.6 % (0-4.4); Hematocrit 38.5 % (37.0-47.0); Hemoglobin 12.4 g/dL (12.0-15.0); Immature Granulocyte Absolute 0.01 K/mm3 (0.00-0.031); Immature Granulocyte Percent A 0.2 % (0-0.5); Lymphocytes Absolute Auto 1.59 K/mm3 (0.9-3.2); Lymphocytes Percent Auto 38.2 % (18.3-44.2); Mean Corpuscular HGB Conc 32.2 g/dl (32-36); Mean Corpuscular Hemoglobin 28.4 pg (26-34); Mean Corpuscular Volume 88.1 fl (80-100); Monocytes Absolute Auto 0.4 K/mm3 (0.1-0.6); Monocytes Percent Auto 9.4 % (2.6-8.5); Neutrophils Percent Auto 48.9 % (45.5-73.1); Platelet Count Result 277 k/mm3 (150-375); Red Blood Count 4.37 M/mm3 (4.2-5.4); Red Cell Distribution Width 13.5 % (11.5-14.5); White Blood Count 4.2 K/mm3 (4.5-10.0)
[2023-02-11 10:59] LABS: Hemoglobin A1C 5.3 % (<5.7)
[2023-02-11 11:04] LABS: Alanine Aminotransferase 16 U/L (6-35); Albumin Level 4.5 g/dL (3.5-5.1); Alkaline Phosphatase 92 U/L (38-126); Anion Gap 8 mmol/L (8-16); Aspartate Amino Transferase 24 U/L (14-36); Bilirubin,Total 0.8 mg/dL (0.2-1.3); Blood Urea Nitrogen 9 mg/dL (7-17); Calcium 9.5 mg/dL (8.4-10.2); Carbon Dioxide 24 mmol/L (22-30); Chloride 108 mmol/L (98-107); Cholesterol 228 mg/dL (0-200); Estimated Glomerular Filt Rate > 60; Glucose 96 mg/dL (65-110); HDL Direct 90 mg/dL; Potassium 3.9 mmol/L (3.4-5.0); Sodium 140 mmol/L (137-145); Triglycerides 101 mg/dL (<150)
[2023-02-11 11:15] LABS: LDL Cholesterol Direct 88 mg/dL
[2023-02-11 11:57] LABS: Vitamin D 25 Hydroxy 38.4 ng/mL
== END 2023-02-11 10:29 | disposition home or self-care (01) ==
LOC: ANHLAB 10:29
PROVIDERS: PCP Nurse Practitioner Family; Visit Provider Nurse Practitioner Family
DX: E55.9 Vitamin D deficiency, unspecified (principal); Z13.0 Encounter for screening for diseases of the blood and blood-forming organs and certain disorders involving the immune mechanism; Z68.36 Body mass index [BMI] 36.0-36.9, adult; Z13.228 Encounter for screening for other metabolic disorders; Z13.220 Encounter for screening for lipoid disorders
CPT/HCPCS: 36415; 80053; 80061; 82306; 83036; 85025

== ENCOUNTER 2023-02-13 16:35 | Emergency (ER) | payer OTHER, SELFPAY ==
[2023-02-13 16:39] VITALS: BP 129/93; PULSE 73; RESP 16; TEMP 36.3; O2SAT 100
--- NOTE | 2023-02-13 17:36 | ED.HA ---
HPI - Headache General Chief Complaint: Headache Stated Complaint: HEADACHE Time Seen by Provider: 02/13/23 17:23 Source: patient and RN notes reviewed Mode of arrival: ambulatory Limitations: no limitations History of Present Illness HPI Narrative: Patient presents today complaining 2-3 day history of sinus pressure, rhinorrhea, and nasal itching with sinus headache since 2:00 a.m. this morning. Patient currently rates her pain 10/10 and did a sinus rinse last night without much relief. Denies fever, cough, dizziness or lightheadedness, vision changes. States her current headache is similar to previous sinus headaches. Denies history of migraines. History of myasthenia gravis Related Data Allergies Allergy/AdvReac Type Severity Reaction Status Date / Time clarithromycin Allergy Unknown Aggravates Verified 02/13/23 16:49 Myasthenia gravis levofloxacin Allergy Unknown Unknown Verified 02/13/23 16:49 azithromycin AdvReac Unknown DOES NOT Verified 02/13/23 16:49 WORK FOR PT Review of Systems Review of Systems: CONSTITUTIONAL: Denies body aches, fever, chills, or sweats. EYES: Denies visual changes, redness, or discharge. ENT: Denies congestion, sore throat, or otalgia.+ rhinorrhea, sinus pressure pain and itching CARDIOVASCULAR: Denies chest pain, palpitations, or edema. RESPIRATORY: Denies cough or dyspnea. GASTROINTESTINAL: Denies abdominal pain, nausea, vomiting, or diarrhea. GENITOURINARY: Denies dysuria or hematuria. SKIN: Denies rash, itching, or wounds. MUSCULOSKELETAL: Denies back pain, joint pain, or myalgia. NEUROLOGIC: Denies numbness, tingling, or weakness.+ headache PSYCH: Denies depression or anxiety. [facility] Past Medical History Medical History Colon polyp Hypovitaminosis D Myasthenia gravis Screening mammogram, encounter for Surgical History Surgical History H/O hysterectomy with oophorectomy H/O thymectomy Family History Family History Father Family history of malignant neoplasm of bone Social History Social History Smoking status: Never smoker Alcohol intake: current Drinks per week: 3 Substance use: never Substance use type: does not use Lack of Transportation: No Lack of Food: Often True Current Housing: I Have Housing Concerned About Future Housing: No Difficulty Paying Gas/Electric Bills: YES Difficulty Paying for Meds: YES Currently Unemployed: No Education: Trade/Vocational Certificate Difficulty w/ Childcare or Family Care: YES Living arrangements: alone Spiritual care concerns: No Comments At time of signature, I have reviewed and agree with nursing past medical, surgical, social and family history unless otherwise noted. Please see nursing chart for further information. There is no relevant family history pertinent to the presenting complaint Exam Narrative: GENERAL: Well-appearing, well-nourished, and in no acute distress. Sitting in a darkened room. HEAD: Normocephalic, atraumatic. EYES: EOMI. PERRL. No redness or drainage. Conjunctivae normal. ENT: Mucous membranes pink and moist. Nares congested with rhinorrhea. Right maxillary sinus pressure. TMs normal bilaterally. Throat normal. Uvula midline. NECK: Normal AROM. Supple. No lymphadenopathy. CHEST: No respiratory distress. Clear to auscultation. HEART: Regular rate and rhythm. No murmur appreciated. Normal peripheral pulses. EXTREMITIES: Normal range of motion. No edema. SKIN: Warm, dry, no rash. Capillary refill normal. Normal skin turgor. NEURO: No focal deficits. Alert and oriented x3. Gait steady. PSYCH: Normal affect. No signs of depression or anxiety. Course Course Level of Care: Express Care Visit Vital Sign
== END 2023-02-13 17:46 | disposition home or self-care (01) ==
PROVIDERS: Emergency Provider Nurse Practitioner; PCP Family Medicine
DX: J01.00 Acute maxillary sinusitis, unspecified (principal); G70.00 Myasthenia gravis without (acute) exacerbation
CPT/HCPCS: 99213; G0463

== ENCOUNTER 2024-05-18 18:03 | Emergency (ER) | payer OTHER, SELFPAY ==
--- NOTE | 2024-05-18 18:03 | ED.URI ---
HPI - URI/Sore Throat General Chief Complaint: Upper Respiratory Infection Stated Complaint: Sinus Infection Symptoms Time Seen by Provider: 05/18/24 18:03 Source: patient Mode of arrival: ambulatory Limitations: no limitations History of Present Illness HPI Narrative: Xin is a 54-year-old female patient presenting to the clinic today with complaints of possible sinus infection x3 days. She reports she is having nasal drainage going in the back of her throat, nasal congestion, and sinus pain. No known fevers, chills, body aches. Has history of myasthenia gravis MD elicited complaint: sore throat and nasal congestion Related Data Allergies Allergy/AdvReac Type Severity Reaction Status Date / Time clarithromycin Allergy Unknown Aggravates Verified 05/18/24 18:06 Myasthenia gravis levofloxacin Allergy Unknown Unknown Verified 05/18/24 18:06 azithromycin AdvReac Unknown DOES NOT Verified 05/18/24 18:06 WORK FOR PT Review of Systems Review of Systems: Pertinent positives per HPI. Patient denies any fever, chills, rash, headache, visual changes, dizziness, shortness of breath, chest pain, palpitations, nausea, vomiting, diarrhea, constipation, abdominal pain, or any urinary issues. [facility] Past Medical History Medical History Colon polyp Screening mammogram, encounter for Hypovitaminosis D Myasthenia gravis Surgical History Surgical History H/O hysterectomy with oophorectomy H/O thymectomy Family History Family History Father Family history of malignant neoplasm of bone Social History Social History Smoking status: Never smoker Alcohol intake: current Drinks per week: 3 Substance use: never Substance use type: does not use Do You Feel Safe in your Home?: Yes Lack of Transportation: No Lack of Food: Never True Current Housing: I Have Housing Concerned About Future Housing: No Difficulty Paying Gas/Electric Bills: No Difficulty Paying for Meds: Decline to Answer Currently Unemployed: Decline to Answer Education: Decline to Answer Difficulty w/ Childcare or Family Care: Decline to Answer Living arrangements: alone Spiritual care concerns: No Comments At the time of my signature, I reviewed and agree with the nursing past medical, surgical, social, and family history. There is no relevant family history pertinent to the patient complaint. Exam Narrative: General: Well-developed, well nourished, in no apparent distress Head: Normocephalic, atraumatic Eyes: Pupils equally round and reactive to light bilaterally, EOM intact, sclera and conjunctive clear, no discharge, lids normal Ears: TMs intact and clear, ear canals clear, no drainage, grossly hearing normal. Nose: Nares patent, green nasal discharge, mild inflammation, maxillary sinus tenderness. Mouth: Oral pharynx without lesions or masses, good dentition, MMM. Postnasal drip Neck: Supple, trachea midline, no enlargement of anterior or posterior cervical nodes, no thyroid masses or goiter palpable. Cardio: Regular rate and rhythm, s1 and s2 normal, no murmur appreciated. Resp: Clear to auscultation bilaterally, no rhonchi, rales, wheezing or rubs Course Course Emergency Course: Portions of this record may have been created with voice recognition software. Level of Care: Express Care Visit Vital Signs Vital signs: Vital signs reviewed MDM - URI/Sore Throat MDM Narrative Medical decision making narrative: At the time of visit patient is resting comfortably on the exam table. Patient appears to be nontoxic. Plan: I suspect patient has acute sinusitis. Patient is immunocompromised so I will go ahead and cover her with antibiotic. Prescription for Augmentin and prednisone was sent to the pharmacy. Supportive measures were discussed with the patient and they voiced understanding discharge instructions and agrees to treatment plan. Return precautions reviewed Differential Diagnosis Differential diagnosis: Likely upper respiratory infection, otitis media, sinusitis, viral infection, bronchitis, influenza, pharyngitis and other (COVID) Discharge Plan Discharge Clinical Impression: Sinusitis Qualifiers: Sinusitis location: maxillary Chronicity: acute Recurrence: non-recurrent Qualified Code(s): J01.00 - Acute maxillary sinusitis, unspecified Patient Disposition: Home, Self-Care Condition: Stable Instructions: Antibiotic Form, Sinusitis (ED) Additional Instructions: Take prescription medications only as prescribed-prednisone and Augmentin Increase fluids and stay well hydrated Tylenol/motrin for pain/fever Flonase and OTC antihistamines as directed Vicks vapor rub to open sinuses Sinus rinses for congestion Cepacol spray, cough drops, throat lozenges, warm tea with honey/lemon, gargle salt water to soothe throat BRAT diet for diarrhea Clear liquids x 24 hours then advance as tolerated for nausea/vomiting Go to the ED if you develop a worsening in your condition- high fever not controlled by Tylenol or Motrin, dehydration, weakness, lethargy, shortness of breath, or chest pain. Follow up with your PCP in 3-5 days if symptoms persist. Patient Language: Georgian Prescriptions: New amoxicillin-pot clavulanate 875-125 mg tablet 1 tablet PO Q12H 10 Days Qty: 20 0RF prednisone 20 mg tablet 40 mg PO DAILY 5 Days Qty: 10 0RF No Action prednisone 5 mg tablet 5 mg PO DIRECTED Qty: 60 2RF Rx Instructions: 1 tablet alternate day pyridostigmine bromide 60 mg tablet See Rx Instructions .ROUTE .COMPLEX Qty: 60 6RF Dose Instruction: TAKE 1 TABLET BY MOUTH TWICE DAILY Rx Instructions: TAKE 1 TABLET BY MOUTH TWICE DAILY Follow-up/Referrals: UNKNOWN,DOCTOR [Non-Staff] - Time of Disposition: 18:13 Quality NIHSS Nursing Documentation ED NIHSS nursing documentation: reviewed/agree
[2024-05-18 18:08] VITALS: BP 126/96; PULSE 66; RESP 18; TEMP 36.7; O2SAT 100
== END 2024-05-18 18:15 | disposition home or self-care (01) ==
PROVIDERS: Emergency Provider Nurse Practitioner Family; PCP Family Medicine
DX: J01.00 Acute maxillary sinusitis, unspecified (principal); G70.00 Myasthenia gravis without (acute) exacerbation
CPT/HCPCS: 99213; G0463

== ENCOUNTER 2024-09-28 15:01 | Outpatient (CLI) | payer OTHER, SELFPAY ==
--- OUTSIDE RECORDS SUMMARY | 2024-09-28 15:05 | XMS_ITS | Data Portability ---
Author Organization [facility], [place] Address [address] [place] [address] [place] [address] Assessment Encounter Date Assessment Date Assessment LastModified by Organization Details LastModified Time 08/21/2022 08/21/2022 Annual gynecological exam performed. Patient will come back in a year unless there are new symptoms. Not available 08/21/2022 09:10:55 10/22/2023 10/22/2023 Annual gynecological exam performed. Patient will come back in a year unless there are new symptoms. [email or web address] Not available 10/22/2023 10:14:06 Plan of Treatment Reminders Order Date Submit Date Provider Last Modified By Organization Details Last Modified Time Details Appointments None recorded. Lab urinalysis, dipstick 2023 024 [facility], [address], [place], [address], 10:38:45 urinalysis, dipstick 2023 024 [email or web address] [place], [address], [place], [address], 16:39:19 Referral None recorded. Procedures None recorded. Surgeries None recorded. Imaging MAMMO, screening, digital, bilateral 2023 024 [email or web address] [facility], [address], [place], [address], 5 10:17:42 MAMMO, screening, bilateral 2022 023 [facility] , [address], [address] [address], [place], [address], 3 05:01:50 Medication Orders cephalexin 500 mg capsule 2023 024 [id number], [address], [place], [id number], 4 10:40:24 valacyclovi r 500 mg tablet 2022 023 [facility] #07981, [address], [place], [id number], 3 09:26:58 hydrocodone 5 mg-acetamin ophen 325 mg tablet [address] [facility]64409, [address], [place], [id number], 3 09:11:54 ibuprofen 800 mg tablet [address] [facility][id number], [address], [place], [id number], 3 09:11:57 Patient TargetsNo targets recorded. Patient InstructionsNo instructions recorded. Reason for Referral None Reported. Results Created Date Observation Date Name Description Value Unit Range Abnormal Flag Note LastModifiedBy Organization Detail LastModifiedTime 10/07/19 24 10/07/2023 CULTU RE: URINE result report SEE RESULT S BELOW abnormal Test: Cultu re: Urine Speci men Sourc e: Urine - Clean Catch Speci men Type: Urine Speci men Date: 2023 1636 Resul t Date: 2023 1359 Resul t Statu s: Final resul t Abnor mal: Yes Resul ting Lab: [facility] [address] [facility] [address] Tel: CULTU RE ----- ----- ----- --- 10,00 0-25, 000 CFU/m l Aeroc occus virid ans (Abno rmal) Aeroc occus speci es are usual ly susce ptibl e to beta- lacta ms and vanco mycin . Maged fritz has been descr ibed for fluor oquin olone s. Not Available [facility] (Lab) [address], [place], [address], 10/09/2023 15:01:46 10/07/19 24 10/07/2023 urina lysis , dipst ick Leukocytes + Not Available [facility] [address], [place], [address], 10/07/2023 16:39:03 10/07/19 24 10/07/2023 urina lysis , dipst ick Protein + Not Available [place] [address], [place], [address], 10/07/2023 16:39:03 10/07/19 24 10/07/2023 urina lysis , dipst ick Blood + Not Available [address] [place] [address], [place], [address], 10/07/2023 16:39:03 10/22/19 24 10/22/2023 CULTU RE: URINE result report SEE RESULT S BELOW Test: Cultu re: Urine Speci men Sourc e: Urine - Clean Catch Speci men Type: Urine Speci men Date: 1047 Resul t Date: 727 Resul t Statu s: Final resul t Abnor mal: No Resul ting Lab: [facility] [address] [facility] [address] Tel: CULTU RE ----- ----- ----- --- No growt h in 1 day (dete ction level of 10,00 0 colon ies / ml.) Not Available [facility] (Lab) [address] [facility], [place], [address], 10/24/2023 08:32:25 10/22/19 24 10/22/2023 IMAGE GUIDE D PAP AND HPV REGAR DLESS image guided Pap, HPV regardless of Pap result SEE RESULT S BELOW CASE REPOR T: Cytol ogy Gynec ologi jazmyn Repor t Case: [id number] Autho rico sun Provi lidya: Jodi Draper, ESTELLE Colle cted: 10/21 1049 Order ing Locat ion: [place] [facility] Recei rubia: 10/22 0732 First Scree n: Vandana Yates, CT Rescr een: Cedrick Virgen, CT Speci men: Scresacha zaid Pap - Image d, Cervi x STATE MENT OF ADEQU ACY: Satis facto ry for evalu ation Trans forma tion zone compo nent absen t The absen ce of an endoc ervic al compo nent was confi rmed by an addit ional scree ner. ----- ----- ----- ----- ----- ----- ----- ----- ----- ----- ----- ----- ----- ----- ----- ----- ----- ---- FINAL DIAGN OSIS: Negat mariel for Intra epith elial Bart rashid or Joselito somers ([facility]) . Elect jaelyn morel d by Cedrick Virgen, CT on 2023 at 1:47 PM ----- ----- ----- ----- ----- ----- ----- ----- ----- ----- ----- ----- ----- ----- ----- ----- ----- ---- HPV RESUL TS: HPV mRNA E6/E7 : No HPV mRNA Detec janey NOTE: This high risk HPV mRNA assay detec ts fourt een high- risk HPV types (16, 18, 31, 33, 35, 39, 45, 51, 52, 56, 58, 59, 66, 68) witho ut diffe renti ation . COMME NT: This speci men was revie wed by a Cytot echno logis t and/o r Patho logis t (as indic ated in this repor t) after evalu ation using the Thinp rep Imagi ng Syste m. CLINI JAZMYN INFOR MATIO N: Menst rual Statu s: LMP (if appli cable ): Clini jazmyn Histo ry/Pr eviou s Pap: Type of Neopl shi (if appli cable ): Signi fican t Clini jazmyn Findi ngs: Other Histo ry: Hormo hermes (if appli cable ): PAP EDUCA ANDREI L NOTE: The Pap Test is a scree zaid test with an inher ent false negat mariel rate. Liqui d-bas ed sampl ing may decre ase, but will not elimi alexandra, false negat mariel resul ts. A negat mariel resul t does not precl ude the prese nce and/o r devel opmen t of disea se, since the prese nce of abnor mal cells in the sampl e depen ds on the locat ion of the lesio n and sampl ing techn ique. Santi nued regul ar scree zaid is the best metho d of cance r preve ntion . If repor janey cytol ogic findi ng do not corre late with physi jazmyn and/o r histo rical findi ngs, furth er inves tigat ion is recom emmanuel d, as clini janet carlson nted. Not Available [facility] (Lab) [address], [place], [address], 10/29/2023 14:51:34 10/22/19 24 10/22/2023 urina lysis , dipst ick Leukocytes Trace Not Available [facility] [address], [place], [address], 10/22/2023 10:29:43 10/22/19 24 10/22/2023 urina lysis , dipst ick Nitrite Negati ve Not Available [place] [address], [place], [address], 10/22/2023 10:29:43 10/22/19 24 10/22/2023 urina lysis , dipst ick Urobilinogen Normal Not Available [facility] [address], [place], [address], 10/22/2023 10:29:43 10/22/19 24 10/22/2023 urina lysis , dipst ick Protein Trace Not Available [place] [address], [place], [address], 10/22/2023 10:29:43 10/22/19 24 10/22/2023 urina lysis , dipst ick pH 5 Not Available [place] [address], [place], [address], 10/22/2023 10:29:43 10/22/19 24 10/22/2023 urina lysis , dipst ick Specific [place] 1.025 Not Available [facility] [address], [place], [address], 10/22/2023 10:29:43 10/22/19 24 10/22/2023 urina lysis , dipst ick Ketone Negati ve Not Available [place] [address], [place], [address], 10/22/2023 10:29:43 10/22/19 24 10/22/2023 urina lysis , dipst ick Bilirubin Negati ve Not Available [place] [address], [place], [address], 10/22/2023 10:29:43 08/0610/22/2023 urina lysis , dipst ick Glucose Normal Not Available [place] [address], [place], [address], 10/22/2023 10:29:43 10/22/19 24 10/22/2023 urina lysis , dipst ick Color Light yellow Not Available [place] [address], [place], [address], 10/22/2023 10:29:43 Result Notes None recorded. Problems Name Problem SNOMED Code Status Onset Date Resolution Date Notes Provider Name and Address Organization Details Recorded Time Evaluati on finding Completed 201712/07/2020 Hematuri a, unspecif ied;Vince rded Elsewher e: No Locat ion: [facility] S ource: EHR Cloth Shrinking Tester thomas: Maureen Kimball ce ID: 0001 Abdirashid lable Time: 09:56:26 AM Keshia linn [facility] 11:27:44 Dysfunct ional uterine bleeding Completed 201412/07/2020 Other disorder s of menstrua tion and other abnormal bleeding from female genital tract;Re corded Elsewher e: No Locat ion: [facility] S ource: EHR Cloth Shrinking Tester thomas: Maureen Kimball ce ID: 0001 Abdirashid lable Time: 10:30:00 AM Keshia linn [facility] 1 11:27:34 Pelvic and perineal pain [id number] Completed 201512/07/2020 Pelvic and perineal pain;Rec orded Elsewher e: No Locat ion: [facility] S ource: EHR Cloth Shrinking Tester thomas: Maureen Luati ce ID: 0001 Abdirashid lable Time: 08:15:00 AM Keshia linn [facility] 11:27:45 Screenin g for malignan t neoplasm of rectum Completed 201112/07/2020 Screenin g for malignan t neoplasm s of the rectum;R ecorded Elsewher e: No Locat ion: [facility] S ource: EHR Cloth Shrinking Tester thomas: N Chanellti ce ID: 0001 Abdirashid lable Time: 10:00:00 AM Keshia linn [facility] 11:27:47 Pregnanc y test negative [id number] Completed 201712/07/2020 Encounte r for pregnanc y test, result negative ;Recorde d Elsewher e: No Locat ion: [facility] N Practi ce ID: 0001 Abdirashid lable Time: 01:30:00 PM Keshia linn, [facility] 11:27:[address] Concept Completed 201512/07/2020 Encntr for multicultural manager exam (general ) (routine ) w/o abn findings ;Recorde d Elsewher e: No Locat ion: [facility]: [facility]: N Chanellti ce ID: 0001 Abdirashid lable Time: 10:15:00 AM Keshia linn, [facility] 11:27:50 Trichomo nal vulvovag initis [id number] Completed 201712/07/2020 Trichomo nal vulvovag initis;R ecorded Elsewher e: No Locat ion: [facility] S ource: EHR Cloth Shrinking Tester thomas: N Chanellti ce ID: 0001 Abdirashid lable Time: 08:15:00 AM Keshia linn [facility] 11:27:57 Speciali lizad medical examinat ion Completed 201412/07/2020 Gynecolo gical Examinat ion;Vince rded Elsewher e: No Locat ion: [facility] S ource: EHR Cloth Shrinking Tester thomas: N Chanellti ce ID: 0001 Abdirashid lable Time: 11:30:00 AM Keshia linn [facility] 11:27:[address] Concept Completed 201512/07/2020 Encntr for general adult medical exam w/o abnormal findings ;Recorde d Elsewher e: No Locat ion: [facility] S ource: EHR Cloth Shrinking Tester thomas: N Practi ce ID: 0001 Abdirashid lable Time: 10:15:00 AM Keshia linn [facility] 11:27:48 Benign neoplasm of vulva [id number] Completed 201012/07/2020 Benign neoplasm of vulva;Re corded Elsewher e: No Locat ion: [facility] S ource: EHR Cloth Shrinking Tester thomas: N Chanellti ce ID: 0001 Abdirashid lable Time: 10:30:00 AM Keshia linn [facility] 11:27:58 Screenin g for malignan t neoplasm of cervix Completed 201012/07/2020 Screenin g for malignan t neoplasm s of the cervix;R ecorded Elsewher e: No Locat ion: [facility] S ource: EHR Cloth Shrinking Tester thomas: N Chanellti ce ID: 0001 Abdirashid lable Time: 02:00:00 PM Keshia linn [facility] 11:27:32 Condylom a acuminat um of the anogenit al region [id number] Completed 201012/07/2020 Condylom a acuminat um;Pract ice ID: 0001 Keshia linn [facility] 11:27:38 Vulval and/or perineal noninfla mmatory disorder s [id number] Completed 201112/07/2020 Other specifie d noninfla mmatory disorder s of vulva and perineum ;Practic e ID: 0001 Keshia linn [facility] 09/22/202 1 11:27:36 High risk sexual behavior [id number] Completed 201112/07/2020 High-ris k sexual behavior ;Practic e ID: 0001 [facility]27:26 Family planning surveill ance Completed 201312/07/2020 Contrace ptive surveill ance, unspecif ied;Prac wesly ID: 0001 Keshia Reyes [facility] 11:27:51 Urinary tract infectio us disease [id number] Completed 201712/07/2020 Urinary tract infectio n, site not specifie d;Practi ce ID: 0001 Keshia Reyes [facility] 11:27:56 Acute vaginiti s 07196489 Completed 201712/07/2020 Acute vaginiti s;Practi ce ID: 0001 Keshia Reyes [facility] 11:27:40 Uterine leiomyom a 63283510 Completed 201912/07/2020 Leiomyom a of uterus, unspecif ied;Prac wesly ID: 0001 Manisha Mcwilliams MD [address], [place], [address], [facility] 2 12:20:38 Increase d frequenc y of urinatio n 332825932 Completed 201712/07/2020 Frequenc y of micturit ion;Vince rded Elsewher e: No Locat ion: [facility] S ource: EHR Cloth Shrinking Tester thomas: N Practi ce ID: 0001 Abdirashid lable Time: 02:45:00 PM [facility] 11:27:31 Amenorrh ea 36672104 Completed 201412/07/2020 Amenorrh ea;Recor ded Elsewher e: No Locat ion: [facility] S ource: EHR Cloth Shrinking Tester thomas: N Chanellti ce ID: 0001 Abdirashid lable Time: 01:00:00 PM Keshia linn [facility] 1 11:27:27 Primary amenorrh ea [id number] Completed 201712/07/2020 Primary amenorrh ea;Recor ded Elsewher e: No Locat ion: [facility] S ource: EHR Cloth Shrinking Tester thomas: N Chanellti ce ID: 0001 Abdirashid lable Time: 02:45:00 PM Keshia Reyes [facility] 11:27:29 Adult health examinat ion Completed 201412/07/2020 ROUTINE MEDICAL EXAM;Rec orded Elsewher e: No Locat ion: [facility] S ource: EHR Cloth Shrinking Tester thomas: N Chanellti ce ID: 0001 Abdirashid lable Time: 11:30:00 AM Keshia linn [facility] 1 11:27:43 Endometr ial hyperpla mendoza [id number] Completed 201412/07/2020 Endometr ial hyperpla mendoza, unspecif ied;Vince rded Elsewher e: No Locat ion: [facility] S ource: EHR Cloth Shrinking Tester thomas: N Chanellti ce ID: 0001 Abdirashid lable Time: 01:38:37 PM Keshia linn [facility] 1 11:27:37 Blood leukocyt e number above referenc e range [id number] Completed 201712/07/2020 Elevated white blood cell count, unspecif ied;Vince rded Elsewher e: No Locat ion: [facility] S ource: EHR Cloth Shrinking Tester thomas: N Practi ce ID: 0001 Abdirashid lable Time: 02:45:00 PM Keshia Reyes [facility] 1 11:27:53 Uterine leiomyom a [id number] Active 2021 Leiomyom a of uterus, unspecif ied;Prac wesly ID: 0001 Manisha Mcwilliams MD [address], [place], [address], [facility] 2 12:20:38 Myasthen ia gravis 44719651 Active 2021 Manisha Mcwilliams MD [address], [place], [address], [facility] 2 12:20:49 Genital herpes simplex 11296528 Active 2021 Manisha Mcwilliams MD [address], [place], [address], [facility] 2 13:40:59 Problem Notes None recorded. Procedures Surgical History Date Name Laterality Status Provider Name and Address Organization Details Recorded Time 01/03/20 22 TOTAL HYSTERECTOMY, LAPAROSCOPIC, WITH BILATERAL SALPINGO-OOPHOR ECTOMY (SURG) completed Giovana Monae [facility] 01/03/2022 10:35:23 09/13/19 22 Endometrial Biopsy completed Manisha Mcwilliams MD [address], [place], [address], [facility] 09/12/2021 16:52:03 05/30/19 22 Date of Last Mammogram completed Cami Disla [facility] 08/21/2022 09:13:17 12/27/19 21 Date of Last Pap Smear completed Cami Disla [facility] 08/21/2022 09:12:10 07/30/19 18 completed Raquel Meléndez [facility] 09/07/2019 12:35:23 08/17/19 17 biopsy of breast completed Raquel Meléndez [facility] 09/07/2019 12:40:25 01/23/20 11 Colposcopy completed Keshia Reyes [facility] 12/07/2020 11:42:21 03/18/18 96 reduction mammoplasty completed [facility] 09/02/2019 16:56:41 03/18/18 87 Removal of thymus gland completed [facility] 09/02/2019 16:56:29 Imaging Results None recorded. Procedure Notes None recorded. Medical Equipment None Reported. Allergies Allergen ID Allergen Name Allergen Category Reaction Reaction Severity Criticality Documentation Date Start Date Code Code System Note Provider Name and Address Organization Details Recorded Time 1034 azithromy korey medicatio n Not available Not available Not available 09/02/2019 17727 RxNorm [facility] 0 16:55:07 1035 clarithro mycin medicatio n Not available Not available Not available 09/02/2019 34550 [facility] 0 16:55:17 1036 levofloxa korey medicatio n Not available Not available Not available 09/02/2019 02473 [facility] 0 16:55:28 55165 Product containin g penicilli n (product) medicatio n Not available Not available Not available 12/07/2020 83359 8001 SNOMED Keshia Reyes [facility] 1 11:10:18 28592 ciproflox acin medicatio n Not available Not available Not available 10/14/2023 2551 RxNorm Cami Naif [facility] 4 10:39:09 75412 Bactrim medicatio n facial swelling hives Not available Not available Not available 10/21/2023 41621 9 RxNorm Rubina Day [facility] 4 10:21:42 Medications Name Sig Start Date Stop Date Status Note LastModified by Organization Details LastModified Time Prometriu m 200 mg capsule take 1 capsule by oral route every day for 12 days at bedtime 11/14 completed Prescrib ed Elsewher e: No [facility] By: carrie mercado DateTime : 11/06/19 17 11:15:53 AM Not Available Not Available Not Available amoxicill in 500 mg capsule TAKE 1 CAPSULE BY MOUTH EVERY 12 HOURS 12/26 completed Not Available Not Available Not Available ibuprofen 800 mg tablet TAKE 1 TABLET BY MOUTH THREE TIMES DAILY 08/21 completed Not Available Not Available Not Available tramadol 37.5 mg-acetam inophen 325 mg tablet take 1 tablet by oral route every 4 - 6 hours as needed, for up to 5 days; do not exceed 8 tablets in 24hrs 06/24 completed Prescrib ed Elsewher e: No Locat ion: [facility] odify By: katelyn farias DateTime : 06/22/19 18 09:15:00 AM Not Available Not Available Not Available sulfameth oxazole 400 mg-trimet hoprim 80 mg tablet TAKE 1 TABLET BY MOUTH TWICE DAILY 12/26 completed Not Available Not Available Not Available hydrocodo ne 5 mg-acetam inophen 325 mg tablet TAKE 1 TABLET BY MOUTH EVERY 6 HOURS 08/21 completed Not Available Not Available Not Available ibuprofen 200 mg capsule take 1 capsule by oral route every 6 hours as needed 02/17 completed Prescrib ed Elsewher e: Yes Loca tion: [facility] odify By: cmedical Encount er DateTime : 01/02/20 11 02:00:00 PM Not Available Not Available Not Available ondansetr on HCl 4 mg tablet TAKE 1 TO 2 TABLETS BY MOUTH EVERY 4 HOURS NEEDED 12/26 completed Not Available Not Available Not Available prednison e 5 mg tablet TAKE 1 TABLET BY MOUTH EVERY OTHER DAY active Not Available Not Available No t Available penicilli n V potassium 500 mg tablet 10/13 completed Not Available Not Available Not Available topiramat e 25 mg tablet TAKE 1 TABLET BY MOUTH DAILY active Not Available Not Available No t Available phentermi ne 37.5 mg tablet TAKE 1 TABLET BY MOUTH DAILY 30 MINUTES BEFORE OR 1 TO 2 HOURS AFTER BREAKFAS T active Not Available Not Available No t Available acyclovir 400 mg tablet TAKE 1 TABLET(4 00 MG) BY MOUTH TWICE DAILY 08/25 completed Not Available Not Available Not Available valacyclo vir 500 mg tablet TAKE 1 TABLET(5 00 MG) BY MOUTH TWICE DAILY EVERY DAY FOR 3 DAYS NEEDED 2024 active Not Available Not Available Not Avai lable sulfameth oxazole 800 mg-trimet hoprim 160 mg tablet TAKE 1 TABLET BY MOUTH EVERY 12 HOURS FOR 7 DAYS 10/21 completed Not Available Not Available Not Available ketorolac 10 mg tablet take 1 tablet by oral route every 8 hours as needed 08/05 completed Prescrib ed Elsewher e: No Locat ion: [facility] odify By: li mercado DateTime : 06/25/19 18 12:25:44 PM Not Available Not Available Not Available amoxicill in 875 mg tablet TAKE 1 TABLET BY MOUTH EVERY 12 HOURS FOR 10 DAYS 10/13 completed Not Available Not Available Not Available Metrogel Vaginal 0.75 % (37.5 mg/5 gram) insert 1 applicat orful by vaginal route for 5 nights at bedtime 08/05 completed Prescrib ed Elsewher e: No Locat ion: [facility] odify By: li mercado DateTime : 09/28/19 18 09:42:50 AM Not Available Not Available Not Available Synthroid 25 mcg tablet take 1 tablet by oral route every day 08/05 completed Prescrib ed Elsewher e: No Locat ion: [facility] odify By: li riceuntriya DateTime : 12/22/19 15 11:47:39 AM Not Available Not Available Not Available Flagyl 500 mg tablet take 4 tablet by mouth at one time 06/14 completed Prescrib ed Elsewher e: No [facility] By: mdowdy E ncounter DateTime : 06/14/19 18 09:01:42 AM Not Available Not Available Not Available cephalexi n 500 mg capsule TAKE ONE CAPSULE BY MOUTH EVERY 12 HOURS FOR 5 DAYS active Not Available Not Available No t Available pyridosti gmine bromide 60 mg tablet TAKE 1 TABLET BY MOUTH TWICE DAILY active Not Available Not Available No t Available Tylenol 325 mg tablet take 1 tablet by oral route every 4 hours as needed 12/07 completed Prescrib ed Elsewher e: Yes Loca tion: [facility] odify By: deepika Goncalves ncounter DateTime : 01/02/20 11 02:00:00 PM Not Available Not Available Not Available Provera 10 mg tablet take 1 tablet by oral route every day 06/13 completed Prescrib ed Elsewher e: No Locat ion: [facility] odify By: vlad Goncalves ncounter DateTime : 12/16/19 15 01:00:00 PM Not Available Not Available Not Available ibuprofen 600 mg tablet take 1 tablet by oral route 3 times every day with food 08/05 completed Prescrib ed Elsewher e: Yes Loca tion: [facility] odify By: li riceunter DateTime : 06/22/19 18 09:15:00 AM Not Available Not Available Not Available Vitamin D2 1,250 mcg (50,000 unit) capsule take 1 capsule by oral route every week 11/01 completed Prescrib ed Elsewher e: No Locat ion: [facility] odify By: li riceuntriya DateTime : 07/26/19 17 12:38:00 PM Not Available Not Available Not Available doxycycli ne hyclate 100 mg tablet take 1 tablet by oral route 2 times every day 06/21 completed Prescrib ed Elsewher e: No Locat ion: [facility] odify By: li riceunter DateTime : 06/12/19 18 01:30:00 PM Not Available Not Available Not Available Ortho Tri-Cycle n (28) 0.18 mg(7)/0.2 15mg(7)/0 .25 mg(7)-0.0 35 mg tablet TAKE ONE TABLET BY MOUTH ONCE DAILY 06/13 completed Prescrib ed Elsewher e: No Locat ion: [facility] sacha [facility] odify By: vlad mercado DateTime : 05/11/19 15 11:30:00 AM Not Available Not Available Not Available amoxicill in 875 mg-potass ium clavulana te 125 mg tablet TAKE 1 TABLET BY MOUTH TWICE DAILY WITH FOOD FOR 5 DAYS 10/13 completed Not Available Not Available Not Available Doxy-100 100 mg intraveno us solution infuse (100MG) by intraven ous route every day 06/21 completed Prescrib ed Elsewher e: No Locat ion: [facility] odify By: li mercado DateTime : 06/12/19 18 01:30:00 PM Not Available Not Available Not Available Ortho Tri-Cycle n LO (28) 0.18 mg/0.215 mg/0.25 mg-25 mcg tablet take 1 tablet by oral route every day 05/11 completed Prescrib ed Elsewher e: No Locat ion: [facility] odify By: pippa farias DateTime : 04/21/19 14 11:00:00 AM Not Available Not Available Not Available acyclovir 12/07 completed Not Available Not Available Not Available pyridosti gmine bromide 12/07 completed Not Available Not Available Not Available prednison e 12/07 completed Not Available Not Available Not Available Tylenol 12/07 completed Not Available Not Available Not Available Lo Loestrin Fe 1 mg-10 mcg (24)/10 mcg (2) tablet take 1 tablet by oral route every day 04/21 completed Prescrib ed Elsewher e: No Locat ion: [facility] odify By: merle mercado DateTime : 09/18/19 12 10:30:00 AM Not Available Not Available Not Available Vitals Date Recorded Systolic And Diastolic Provider Name and Address Organization Details Last Updated DateTime 08/21/2022 122/72 mm[Hg] Dona Mccarthy [facility] [address], [place], [address], [facility] 08/21/2022 09:15:30 Date Recorded Body height Body mass index (BMI) Body weight Provider Name and Address Organization Details Last Updated DateTime 08/21/2022 163.83 cm 35.7 kg/m2 84936.99 g Cami Disla [facility] 08/21/2022 09:11:07 Date Recorded Body height Body mass index (BMI) Body weight Systolic And Diastolic Provider Name and Address Organization Details Last Updated DateTime 10/07/2023 162.56 cm 35.9 kg/m2 78022.81 g 120/84 mm[Hg] Evelyn Kelley [facility] 10/07/2023 16:38:31 Date Recorded Body height Body mass index (BMI) Body weight Systolic And Diastolic Provider Name and Address Organization Details Last Updated DateTime 10/22/2023 162.56 cm 35.9 kg/m2 68280.81 g 113/80 mm[Hg] Seemasacha Leigh [facility] 10/22/2023 10:15:58 Date Recorded Body height Body mass index (BMI) Body weight Systolic And Diastolic Provider Name and Address Organization Details Last Updated DateTime 01/09/2022 163.83 cm 35 kg/m2 03288.62 g 147/94 mm[Hg] Lali Harp [facility] 01/09/2022 12:07:57 Social History Question Answer Notes LastModified by Organizat ion Details LastModified Time Tobacco Smoking Status Never Smoker Cami Disla null, [facility] 08/21/2022 09:11:42 Do You Have An Advance Directive? No Information n ot available 08/21/2022 Are You Blind Or Do You Have Difficulty Seeing? No Information n ot available 08/21/2022 What Is Your Level Of Caffeine Consumption? Occasional Information not available 08/21/2022 In The 14 Days Before Symptom Onset, Have You Had Close Contact With A Laboratory-confirm ed COVID-19 While That Case Was Ill? No Information n ot available 08/21/2022 In The 14 Days Before Symptom Onset, Have You Had Close Contact With A Person Who Is Under Investigation For COVID-19 While That Person Was Ill? No Information not available 08/21/2022 Have You Been To An Area Known To Be High Risk For COVID-19? No Information not available 08/21/2022 Are You Deaf Or Do You Have Serious Difficulty Hearing? No Information not available 08/21/2022 What Type Of Diet Are You Following? REGULAR Information n ot available 08/21/2022 What Is The Highest Grade Or Level Of School You Have Completed Or The Highest Degree You Have Received? [id number] Information not available 10/22/2023 Are There Any Guns Present In Your Home? Yes Information not available 08/21/2022 What Was The Date Of Your Most Recent Tobacco Screening? 09/07/2019 Information not available 08/21/2022 Do You Use Your Seat Belt Or Car Seat Routinely? Yes Information not available 08/21/2022 Do You Have Smoke And Carbon Monoxide Detectors In Your Home? No Information not available 08/21/2022 How Much Tobacco Do You Smoke? No [email or web address] Information not available 09/07/2019 Do You Use Sunscreen Routinely? No Information not available 08/21/2022 Have You Used IV Drugs? No Information not available 08/21/2022 Do You Have Difficulty Walking Or Climbing Stairs? No [email or web address] Information not available 10/22/2023 Sex: Unknown Functional Status Question Answer Note LastModified by Organizat ion Details LastModified Time Do you use any illicit or recreational drugs? No Information not available 08/21/2022 What is your level of alcohol consumption? Occasional [email or web address] Information not available 09/07/2019 Do you or have you ever used smokeless tobacco? Never used smokeless tobacco Information not available 08/21/2022 Are you able to walk? YESWOREST Information not available 08/21/2022 Are you able to care for yourself? Yes [email or web address] Information not available 10/22/2023 What is your occupation? None [email or web address] Information not available 10/22/2023 Do you have difficulty dressing or bathing? No [email or web address] Information not available 10/22/2023 Do you or have you ever used e-cigarettes or vape? Never used electronic cigarettes Information not available 08/21/2022 What is your exercise level? Moderate Information not available 08/21/2022 Mental Status Question Answer Note LastModified by Organization D etails LastModified Time Do you feel stressed (tense, restless, nervous, or anxious, or unable to sleep at night)? [id number] Information not available 08/21/2022 Family History Relationship Description Onset Age of this Age Resolved Age Notes LastModified by Organization Details LastModified Time Father Malignant neoplasm of bone [email or web address] Not available 09/01 16:55:46 Medical History Condition Response Other Y History of STI Y History of abnormal pap Y Gynecological History Statement/Question Response Abnormal Pap Y Date of Last Mammogram 05/29/2021 On BCP's at Conception? N STIs/STDs Y HPV Vaccine N Colposcopy 01/22/2011 07/29/2017 Current Control Method Hysterectom y If Post Menopausal, Age at Menopause [age] Sexually Active? N Menses Monthly N Date of Last Pap Smear 12/26/2020 Sexual Problems? N Desired Control Method None LMP Unknown Obstetrics History GPAL:G 2 P 0 0 2 0 Type Value Spontaneous 1 Living 0 Ectopics 1 Total 2 Past Encounters Encounter ID Performer Location Encounter Start Date Encounter Closed Date Diagnosis/Indication Diagnosis SNOMED-CT Code Diagnosis ICD10 Code Diagnosis Note [id number] Nehal Lira MD [facility] [address] [address] 09/07/2019 10:54:13 09/07/2019 11:43:34 Gynecologic examination 53053051 Z01.419 Pap done due to h/o abnormal pap. She believes last mammogram was 12/2018, last one in chart 07/2017. Order given [id number] Stephanie Louis CNM [facility] [address] [address] 12/26/2020 11:00:28 12/26/2020 12:04:50 Gynecologic examination 41664683 Z01.419 Z11.51 Suggested Calcium with Vitamin D 1200-1500m g daily. Patient advised to get an annual flu shot in the fall and she could obtain at [facility] or [facility] care clinic. Also to obtain TDap vaccinatio n if you have not had one in the last 10 years. Pt already had covid vaccine. Otherwise does not take vaccines d/t MG. Recommend yearly mammograms . Encouraged monthly self breast exams. Encourage safe sexual practices, to use condoms and limit partners if not already in a monogamous relationsh ip. Engage in daily exercise of low impact aerobic exercise 45-60 minutes 4-5 times weekly. Avoid tobacco and illicit drugs as well as using moderation with alcohol intake less than 1-2 8 oz beverages daily. This lifestyle behavior pattern will lead to less health conditions and longer life span. If BMI greater than 25 weight watchers or dietary consult advised. Pap with STD screen done. All questions have been answered. Patient appears to understand informatio n, but if you have any questions please call or respond to this email. [id number] Dona Mccarthy , [facility] [address] [address] 08/21/2022 09:00:31 08/21/2022 10:20:09 Gynecologic examination 70371518 Z01.419 Take Calcium with Vitamin D 12-1500mg daily. Do monthly self breast exams. It is advised to get annual flu shot in the fall and she could obtain at [facility] or [facility] clinic. If you haven't received the Tdap vaccine in the last 10 years you should obtain one as well. Have mammogram yearly, bone density every 2-3 years and colonoscop y every 5-10 years depending on findings and history. Engage in daily exercise of low impact aerobic exercise 45-60 minutes 4-5 times weekly. Avoid tobacco and illicit drugs as well as using moderation with alcohol intake less than 1-2 8 oz beverages daily. This lifestyle behavior pattern will lead to less health conditions and longer life span. If BMI greater than 25 weight watchers or dietary consult advised. Questions have been answered. Patient appears to understand instructio ns, but if you have any further questions call or respond to this email Pap/hpv USPSTF recommends against screening for cervical cancer in women older than 65yo, those who've had a hysterecto my for non-cancer indication s, & who have had adequate prior screening & are not otherwise at high risk for cervical cancer. STD Screen declined Genetic Screen discussed Colon Screen UTD PCP 2021 Dexa Screen PCP Routine Labs PCPmammo ordered Screening mammography 24 429150 Z12.31 Herpes simplex 49081968 B00.9 PRN use Obese 038394672 E66.9 MedicaidCa n get more informatio n regarding weightloss but likely will have to self pay. [id number] Manisha Mcwilliams MD [facility] [address],[place] [address] 08/25/2021 11:55:16 08/25/2021 14:40:54 Postmenopausal bleeding 91236616 N95.0 Pain in pelvis 06125379 R10.2 Uterine leiomyoma 227304 05 D25.9 [id number] Manisha Mcwilliams MD [facility] [address],[place] [address] 08/29/2021 11:38:05 08/29/2021 13:41:10 Pain in pelvis 50527881 R10.2 N93.9 [id number] Manisha Mcwilliams MD [facility] [address],[place] [address] 09/12/2021 16:10:15 09/12/2021 16:59:04 Uterine leiomyoma 00769117 D25.9 Pain in pelvis 35687314 R10.2 N93.9 Postmenopa usal bleeding 56536237 N95.0 [id number] Asif Souza MD [facility] [address],[place] [address] 10/02/2021 11:03:27 10/02/2021 13:03:34 Amenorrhea 53924845 N91.2 Pain in pelvis 19423691 R10.2 Dyspareunia 39854202 N94 .10 Constipation 25078897 K5 9.00 Uterine leiomyoma 193993 05 D25.9 this patient is a 51-year-ol d female with uterine fibroids and pelvic pain and dyspareuni a. She has an enlarged uterus with multiple uterine fibroids. Patient presumably is menopausal . She has not had bleeding for 5 years. She did have some mild menopausal symptoms several years back. Medical therapies in this situation would not be effective. We are checking her estrogen today. It is likely very low. Surgical therapy is really going to be the recommende d treatment here. Having hormones pack does not make any sense for this patient, GnRH agonist did not make any sense either. Patient would like definitive surgical treatment. I believe this is the best course of action. We talked about total laparoscop ic hysterecto my. We talked about bilateral salpingo-o ophorectom y. Talked about oophorecto my in her age group. Is likely not to have any effect on her all. It would eliminate her risk of ovarian cancer. We had a lengthy discussion regarding her ovaries. We spent over 40 minutes face-to-fa ce. More than 50% was counseling . Made a decision to perform surgery. She is going to consider her ovaries, and whether she wants them out or not. She will contact us to finalize the plan. The orders will be submitted from there in the surgery will be authorized and scheduled. [id number] Asif Souza MD [facility] [address],[place] [address] 12/26/2021 10:41:26 12/27/2021 16:46:19 Pain in pelvis 21019148 R10.2 Uterine leiomyoma 338127 05 D25.9 Dyspareunia 85281406 N94 .10 this patient is a 51-year-ol d female with pelvic pain, fibroids, dyspareuni a. We have agreed to perform total laparoscop ic hysterecto my bilateral salpingo-o ophorectom y. She understand s risks, benefits, and alternativ es. She has completed the informed consent process and is ready to proceed. [id number] Asif Souza MD [facility] [address],[facility] [address] 01/04/2022 10:46:38 01/04/2022 10:47:33 [id number] Asif Souza MD [facility] [address],[facility] [address] 01/09/2022 12:01:14 01/10/2022 10:50:34 Postoperative pain 443044060 G89.18 this patient is a 51-year-ol d female who presents for postop follow-up. She looks incredible . she is dressed immaculate ly. She has no complaints . Her incisions are clean dry and intact. She is recovering normally. She will follow up as needed. Asif Souza MD [facility] [address] [address] 10/07/2023 16:20:32 10/07/2023 16:50:46 Urinary symptoms 553019889 R39.9 [id number] TIERA Salguero [facility] [address] [address] 10/22/2023 10:07:32 10/22/2023 11:25:21 Gynecologic examination 25645755 Z01.419 WWEpap updatedgc/ ct/trich testing sent per pt requestmam mogram order givencolon oscopy UTD / PCProutine labs UTD / PCP Do monthly self breast exams. It is advised to get annual flu shot in the fall and she could obtain at local pharmacy. If you haven't received the Tdap vaccine in the last 10 years you should obtain one as well.safe sexual practices discussed. Have mammogram yearly and stay up to date on colon cancer screening. Engage in regular exercise. Avoid tobacco and illicit drugs.This lifestyle behavior pattern will lead to less health conditions and longer life span. If BMI greater than 25 dietary consult advised. Questions have been answered. Urinary symptoms 9169136 08 R39.9 cx sentrx sent for cephalexin , r/b/a reviewedli mited antibiotic choices d/t pt allergies and myasthenia gravis Screening for malignant neoplasm of breast 223147998 Z12.39 Venereal d isease screening 021319804 Z11.3 Health Concerns Section Related Observation LastModified by Organization Detai ls LastModified Time None Recorded Concern Status LastModified by Organization Details LastModified Time None Recorded Advance Directives Directive N: Payers Insurance Date Sequence Insurance Name Policy Number Policy Wagner Covered Member ID Wagner Member ID Guarantor Name 10/21/2023 1 [employer] [facility] - DOS PRIOR TO 2020 (MEDICAID REPLACEMENT - HMO) Xin Mills [id number] Xin Mills 03/06/2024 1 [facility] - DOS ON OR AFTER 20 (MEDICAID REPLACEMENT - HMO) Naziarosariodonnie Maureen Mills [id number] Naziazainab Rashid Mills Notes Date Note Type Note Provider Name and Address Organization Details Recorded Time 01/09/2022 text/html this patient is a 51-year-old female who presents for postop follow-up. She looks incredible. she is dressed immaculately. She has no complaints. Her incisions are clean dry and intact. She is recovering normally. She will follow up as needed. Asif Souza MD [address], [place], [address], [facility] 01/09/2022 21:49:18 08/21/2022 text/html Annual Retail Marketing Manager Post-MenopausalRep orted bypatient.Menopaus al Symptoms:no menopausal symptoms; normal vaginal lubrication Vaginal Bleeding:history of menopause having occurred; no history of post menopausal bleeding Urinary Symptoms:no hematuria; no incontinence; no nocturia; no urinary frequency Vulva:no genital lesion; no vulvar atrophy Vagina:normal vaginal discharge; no vaginal atrophy Breast:no breast lump; no nipple discharge; no breast pain Sexual Complaints:no sexual complaints Psychological Symptoms:no depression; no anxiety Preventive Measures:encourage regular mammograms starting age 40; encourage self breast examination; encourage regular exercise; encourage no tobacco use; needs to schedule mammogram; history of recent colonoscopy TIERA Lozano- [address], [place], [address], [facility] 08/21/2022 09:29:07 10/22/2023 text/html Annual Retail Marketing Manager Post-MenopausalRep orted bypatient.Menopaus al Symptoms:no menopausal symptoms; normal vaginal lubrication Vaginal Bleeding:history of menopause having occurred; no history of post menopausal bleeding Urinary Symptoms:no hematuria; no incontinence; no nocturia;urinary frequency: times during the day;burning sensation during urination Vulva:no genital lesion; no vulvar atrophy Vagina:normal vaginal discharge; no vaginal atrophy Breast:no breast lump; no nipple discharge; no breast pain Sexual Complaints:no sexual complaints Psychological Symptoms:no depression; no anxiety Preventive Measures:encourage regular mammograms starting age 40; encourage self breast examination; encourage regular exercise; encourage no tobacco useNotes:53yo WWEh/o TLH, BSO for fibroids/painh/o RAZ III in 2011last pap 12/2020 : nilm, HPV (-)mammogram olonoscopy UTD / PCProutine labs UTD / PCP urinary urgency/frequency/ slight irritation x 2-3 weekstreated with bactrim 2 weeks ago, symptoms have not improved neg flank pains, neg n/v/f, neg flu-like symptoms TIERA Salguero [address], [place], [address], [facility] 10/22/2023 11:20:32 OBGyn Episode Ob Episode Information Episode Created Date Number of Fetuses Patient Bloodtype Patient rh Status Prepregnancy Weight lbs Domestic Partner Domestic Partner Phone Father Name University Manager Status 09/07/19 20 1 CLOSED Fetus Data First Name Last Name Admitted to NICU Weight (g) Sex Living Outcome Pediatric Complications Fetus ID Race Codes Race Delivery Type , Spontane ous [id number] Kevin Calculation Initial Kevin Date Initial Exam Date Initial Exam Provider Initial Ultrasound Date Last Menstrual Period Date Ultra Sound Weeks Gestation 0 Eighteen To Twenty Week Kevin Update Ultra Sound Date Fundal Height At Umbil Quickening Date Ultra Sound Latest Weeks Gestation Final Kevin Confirmed By Final Kevin Confirmed Date Final Kevin Date Ultra Sound Latest Days Gestation 0 0 Menstrual History Last Menstrual Date Menses Monthly On Bcp Conception Prior Menses Frequency Hcg Plus Date Menarche Onset Age Delivery Information Delivery Date Delivery Type Labor Anesthesia Weeks Gestation Incision Type Labor Labor Length Hrs Delivered By Post Complications Tubal Sterilization Discharge Date Comments 6 1995 MISCARRIA GE Discharge Information Feeding Method Contraceptive Method Maternal HG B and HCT Levels Ob Episode Information Episode Created Date Number of Fetuses Patient Bloodtype Patient rh Status Prepregnancy Weight lbs Domestic Partner Domestic Partner Phone Father Name University Manager Status 09/07/19 20 1 CLOSED Fetus Data First Name Last Name Admitted to NICU Weight (g) Sex Living Outcome Pediatric Complications Fetus ID Race Codes Race Delivery Type Ectopic 2448 Kevin Calculation Initial Kevin Date Initial Exam Date Initial Exam Provider Initial Ultrasound Date Last Menstrual Period Date Ultra Sound Weeks Gestation 0 Eighteen To Twenty Week Kevin Update Ultra Sound Date Fundal Height At Umbil Quickening Date Ultra Sound Latest Weeks Gestation Final Kevin Confirmed By Final Kevin Confirmed Date Final Kevin Date Ultra Sound Latest Days Gestation 0 0 Menstrual History Last Menstrual Date Menses Monthly On Bcp Conception Prior Menses Frequency Hcg Plus Date Menarche Onset Age Delivery Information Delivery Date Delivery Type Labor Anesthesia Weeks Gestation Incision Type Labor Labor Length Hrs Delivered By Post Complications Tubal Sterilization Discharge Date Comments 1993 ECTOPIC Discharge Information Feeding Method Contraceptive Method Maternal HG B and HCT Levels
--- OUTSIDE RECORDS SUMMARY | 2024-09-28 15:05 | XMS_ITS | Clinical Summary ---
Author Organization [facility] [place] Address [address] [place] [address] Phone Care Team Providers Care Sales Agent Financial Report Service Name Role Phone Unavailable Primary Care Provider Unavailabl e Active Problems Problem Noted Date Diagnosed Date Lesion of breast 10/01/2014 Overview (10/01/2014): Left BIRAD 4 Social History Tobacco Use Types Packs/Day Years Used Date Smoking Tobacco: Never Assessed Comments Unknown Sex and Gender Information Value Date Recorded Sex Assigned at Not on file Legal Sex Female 10:46 AM CDT Gender Identity Not on file Sexual Orientation Not on file Plan of Treatment Health Maintenance Due Date Last Done Comments DTAP/TDAP/TD VACCINES (1 - Tdap) 1990 HEPATITIS B VACCINES (1 of 3 - 19+ 3-dose series) 03/19 HPV/Cotest (21-29) 1992 CERVICAL CANCER SCREENING 2001 HPV/Cotest (30-65) 2001 PAP SMEAR 2001 BREAST CANCER SCREENING 2011 COLORECTAL SCREENING 2016 Colorectal Cancer Screening 2016 FIT-DNA Q 3 years 2016 FIT/FOBT Q 1 year 2016 Flex Sig/CT Colonography Q 5 years 2016 ZOSTER VACCINE (1 of 2) 2021 INFLUENZA VACCINE (#1) 2024
[2024-09-28 16:01] LABS: Hematocrit 39.1 % (37.0-47.0); Hemoglobin 12.7 g/dL (12.0-15.0); Immature Granulocyte Percent A 0.2 % (0-0.5); Lymphocytes Absolute Auto 2.34 K/mm3 (0.9-3.2); Mean Corpuscular HGB Conc 32.5 g/dl (32-36); Mean Corpuscular Hemoglobin 28.7 pg (26-34); Mean Corpuscular Volume 88.3 fl (80-100); Nucleated Red Blood Cells Absolute Auto 0.000 K/mm3 (0.0-0.012); Nucleated Red Blood Cells Perc 0.0 % (0.0-0.2); Platelet Count Result 285 k/mm3 (150-375); Red Blood Count 4.43 M/mm3 (4.2-5.4); White Blood Count 6.0 K/mm3 (4.5-10.0)
[2024-09-28 16:12] LABS: Alanine Aminotransferase 16 U/L (6-35); Albumin Level 4.2 g/dL (3.5-5.1); Alkaline Phosphatase 85 U/L (38-126); Anion Gap 8 mmol/L (4-12); Aspartate Amino Transferase 25 U/L (14-36); Bilirubin,Total 0.5 mg/dL (0.2-1.3); Blood Urea Nitrogen 15 mg/dL (7-17); Calcium 9.2 mg/dL (8.4-10.2); Carbon Dioxide 27 mmol/L (22-30); Chloride 104 mmol/L (98-107); Cholesterol 217 mg/dL (0-200); Estimated Glomerular Filt Rate 47; Glucose 92 mg/dL (65-110); HDL Direct 86 mg/dL; Potassium 3.9 mmol/L (3.4-5.0); Sodium 139 mmol/L (137-145); Total Protein 7.8 g/dL (6.3-8.2); Triglycerides 133 mg/dL (<150)
[2024-09-28 16:15] LABS: Hemoglobin A1C 5.4 % (<5.7)
== END 2024-09-28 15:02 | disposition home or self-care (01) ==
PROVIDERS: PCP Family Medicine; Referring Provider Nurse Practitioner Family; Visit Provider Student in an Organized Health Care Education/Training Program
DX: Z13.228 Encounter for screening for other metabolic disorders (principal); Z13.220 Encounter for screening for lipoid disorders; Z13.0 Encounter for screening for diseases of the blood and blood-forming organs and certain disorders involving the immune mechanism; G70.00 Myasthenia gravis without (acute) exacerbation; Z68.37 Body mass index [BMI] 37.0-37.9, adult
CPT/HCPCS: 36415; 80053; 80061; 83036; 83519; 85025

== ENCOUNTER 2024-10-15 09:05 | Outpatient (CLI) | payer OTHER, SELFPAY ==
--- OUTSIDE RECORDS SUMMARY | 2024-10-15 09:22 | XMS_ITS | Clinical Summary ---
Author Organization [facility] [place] Address [address] [place] [address] Phone Care Team Providers Care Paving Foreman Name Role Phone Unavailable Primary Care Provider [...]
[2024-10-15 09:58] LABS: Alanine Aminotransferase 15 U/L (6-35); Albumin Level 4.2 g/dL (3.5-5.1); Alkaline Phosphatase 82 U/L (38-126); Anion Gap 3 mmol/L (4-12); Aspartate Amino Transferase 26 U/L (14-36); Bilirubin,Total 0.7 mg/dL (0.2-1.3); Blood Urea Nitrogen 15 mg/dL (7-17); Calcium 9.2 mg/dL (8.4-10.2); Carbon Dioxide 27 mmol/L (22-30); Chloride 104 mmol/L (98-107); Estimated Glomerular Filt Rate > 60; Glucose 107 mg/dL (65-110); Potassium 4.1 mmol/L (3.4-5.0); Sodium 134 mmol/L (137-145); Total Protein 7.7 g/dL (6.3-8.2)
[2024-10-15 10:04] LABS: Add Urine Microscopic? NO; Appearance Urine Clear (Clear); Glucose Urine UA Negative (Negative); Leukocyte Esterase Ur Negative LEU/UL (Negative); Nitrate Urine Negative (Negative); Specific Grav Ur 1.015 (1.001-1.035)
== END 2024-10-15 09:06 | disposition home or self-care (01) ==
LOC: ANHLAB 09:07
PROVIDERS: PCP Family Medicine; Visit Provider Nurse Practitioner Family
DX: N17.9 Acute kidney failure, unspecified (principal); R10.9 Unspecified abdominal pain
CPT/HCPCS: 36415; 80053; 81003; 87086

== ENCOUNTER 2024-10-21 15:20 | Emergency (ER) | payer OTHER, SELFPAY ==
[2024-10-21 15:32] VITALS: BP 115/82; PULSE 85; RESP 16; TEMP 36.3; O2SAT 100
--- NOTE | 2024-10-21 15:36 | ED.EAR ---
HPI - Ear Problem General Chief complaint: Ear Stated complaint: R Ear Time Seen by Provider: 10/21/24 15:36 Source: patient Mode of arrival: ambulatory Limitations: no limitations History of Present Illness HPI Narrative: 54 yo F presents with c/o pain to R ear for 2 to 3 days. States that both ear canals have been itchy and she is scratching at them with her fingernails. Afebrile. hearing feels clogged. All systems reviewed and negative except as noted above. Related Data Allergies Allergy/AdvReac Type Severity Reaction Status Date / Time clarithromycin Allergy Unknown Aggravates Verified 10/21/24 15:30 Myasthenia gravis levofloxacin Allergy Unknown Unknown Verified 10/21/24 15:30 azithromycin AdvReac Unknown DOES NOT Verified 10/21/24 15:30 WORK FOR [employer] Past Medical History Medical History Colon polyp Screening mammogram, encounter for Hypovitaminosis D Myasthenia gravis Surgical History Surgical History H/O hysterectomy with oophorectomy H/O thymectomy Family History Family History Father Family history of malignant neoplasm of bone Social History Social History Smoking status: Never smoker Alcohol intake: current Drinks per week: 3 Substance use: never Substance use type: does not use Do You Feel Safe in your Home?: Yes Lack of Transportation: No Lack of Food: Never True Current Housing: I Have Housing Concerned About Future Housing: No Difficulty Paying Gas/Electric Bills: No Difficulty Paying for Meds: Decline to Answer Currently Unemployed: Decline to Answer Education: Decline to Answer Difficulty w/ Childcare or Family Care: Decline to Answer Living arrangements: alone Spiritual care concerns: No Comments At time of signature, agree with nursing past medical, surgical, social and family history. There is no relevant family history pertinent to the presenting complaint. Exam Narrative: GENERAL: This is a well-nourished, well-developed patient, in no apparent distress. HEAD: normocephalic, atraumatic. EYES: PERRL. Sclera clear/white. Vision is grossly intact. EARS: External ears normal, R ear canal mild swelling and erythematous, no drainage. L ear canal normal. TMs normal without perforation. Hearing grossly intact. NOSE: External nose normal NECK: Neck supple, non-tender without lymphadenopathy, masses or thyromegaly. CARDIOVASCULAR: Regular rate and rhythm without murmurs, gallops, or rubs. RESPIRATORY: Clear to auscultation. Breath sounds equal bilaterally. No wheezes, rales, or rhonchi. SKIN: warm, Dry, intact with no suspicious lesions or rash, good texture and turgor. NEURO: awake, alert, and oriented to person, place and time. There were no obvious focal neurologic abnormalities. EXTREMITIES: No joint tenderness, effusion, or edema noted. Course Course Level of Care: Express Care Visit Vital Signs Vital signs: Vital Signs Temperature 36.3 C L 10/21/24 15:32 Pulse Rate 85 10/21/24 15:32 Respiratory Rate 16 10/21/24 15:32 Blood Pressure 115/82 10/21/24 15:32 Pulse Oximetry 100 10/21/24 15:32 Temperature 36.3 C L 10/21/24 15:32 Pulse Rate 85 10/21/24 15:32 Respiratory Rate 16 10/21/24 15:32 Blood Pressure 115/82 10/21/24 15:32 Pulse Oximetry 100 10/21/24 15:32 reviewed Medical Decision Making MDM Narrative Medical decision making narrative: R ear canal is erythematous with mild swelling. Will treat with abx ear drop. pt agrees with plan of care. Will see PCP if pain not improving. Vital Signs Vital Signs: Vital Signs Temperature 36.3 C L 10/21/24 15:32 Pulse Rate 85 10/21/24 15:32 Respiratory Rate 16 10/21/24 15:32 Blood Pressure 115/82 10/21/24 15:32 Pulse Oximetry 100 10/21/24 15:32 Temperature 36.3 C L 10/21/24 15:32 Pulse Rate 85 10/21/24 15:32 Respiratory Rate 16 10/21/24 15:32 Blood Pressure 115/82 10/21/24 15:32 Pulse Oximetry 100 10/21/24 15:32 Discharge Plan Discharge Clinical Impression: Otitis externa of right ear Qualifiers: Chronicity: acute Patient Disposition: Home Condition: Stable Instructions: Antibiotic Form, How to Use Ear Drops (ED), Ear Infection (ED) Additional Instructions: Place antibiotic ear drops as prescribed. Take Tylenol or ibuprofen every 6-8 hours as needed for pain. Follow-up with your primary care physician if symptoms are not improving. Patient Language: Estonian Prescriptions: New [id number]-TP 3.5-10,000-1 mg/mL-unit/mL-% drops,suspension 3 drp RIGHT EAR Q8H 7 Days Qty: 10 0RF No Action prednisone 5 mg tablet 5 mg PO DIRECTED Qty: 60 4RF Rx Instructions: 1 tablet alternate day pyridostigmine bromide 60 mg tablet See Rx Instructions .ROUTE .COMPLEX Qty: 180 4RF Dose Instruction: TAKE 1 TABLET BY MOUTH TWICE DAILY Rx Instructions: TAKE 1 TABLET BY MOUTH TWICE DAILY Follow-up/Referrals: Sergio Raza MD [Primary Care Provider] - Time of Disposition: 15:48
== END 2024-10-21 15:52 | disposition home or self-care (01) ==
PROVIDERS: Emergency Provider Nurse Practitioner Family; PCP Family Medicine
DX: H60.91 Unspecified otitis externa, right ear (principal); G70.00 Myasthenia gravis without (acute) exacerbation
CPT/HCPCS: 99213; G0463